=== PATIENT | female | born 1950 | race Caucasian/White ===

== ENCOUNTER 2018-08-07 11:00 | Observation (INO) | payer MEDICARE ==
--- NOTE | 2018-07-29 13:59 | HP ---
HISTORY AND PHYSICAL: DATE OF ADMISSION/SURGERY: 08/07/18 DATE OF OFFICE VISIT: 07/25/18 SURGEON: Elaina Ghosh MD* (dictated by CHIKIS Barajas). PROCEDURE: Left total knee arthroplasty. CHIEF COMPLAINT: Left knee pain. HISTORY OF PRESENT ILLNESS: Ms. Alejandro is a 67-year-old female with continued complaints of left knee pain. She has failed conservative treatment and elected to proceed with a left total knee arthroplasty. PAST MEDICAL HISTORY: Hypertension and high cholesterol. PAST SURGICAL HISTORY: Tonsillectomy, adenoidectomy, 2 urethral stricture surgeries, 8 foot surgeries, x2, hysterectomy, septoplasty, and ORIF of the right ankle. CURRENT MEDICATIONS: 1. Metoprolol 25 mg a day. 2. Aspirin 81 mg a day. ALLERGIES: To SULFA, TETRACYCLINE, and ADHESIVE TAPE. FAMILY HISTORY: Coronary artery disease and cancer. SOCIAL HISTORY: She is a 67-year-old female. She lives alone. She does not smoke or use drugs. REVIEW OF SYSTEMS: A complete 14-point review of systems was reviewed with the patient. It was all negative or noncontributory. She denies history of DVT, PE , hepatitis, HIV, or anesthesia problems. PHYSICAL EXAMINATION GENERAL: She is well developed, well nourished, in no acute distress. VITAL SIGNS: She stands 5 feet 3 inches tall, weighs 202 pounds. Blood pressure is 118/64, heart rate is 64. HEENT: Normocephalic, atraumatic. NECK: Supple. No palpable lymph nodes. PULMONARY: The lungs are clear to auscultation bilaterally. CARDIO: Regular rate and rhythm. Strong S1, S2. ABDOMEN: Soft, nontender, nondistended. NEUROLOGICAL: She is alert and oriented x3. MUSCULOSKELETAL: Left lower extremity: The skin is intact. There are no open wounds or abrasions. There is a moderate effusion of the left knee. Range of motion is 10 to 120 degrees of flexion with severe patellofemoral crepitus. 2+ dorsalis pedis pulse. She is able to dorsiflex and plantarflex and has intact sensation. ASSESSMENT AND PLAN: Ms. Alejandro is a 67-year-old female with end-stage osteoarthritis of the left knee. She has failed conservative treatment and elected to proceed with a left total knee arthroplasty. The surgery is scheduled for 08/07/[address] Ghosh discussed the risks and benefits of the surgery at today's visit and all of her questions were answered. She will follow up with Dr. Ghosh 2 weeks after the surgery. CHIKIS BARAJAS [id number]/[facility] #: [id number] ESTELLE
[~2018-08-07 11:00] MED LIST: KETAMINE HCL* 50 MG/ML 10 ML VIAL ONE; Propofol* 500 MG/50 ML BTL ONE; ROPIVACAINE 5 MG/ML 30 ML BTL (0.5%) ONE; Tranexamic Acid 1,000 MG in NS 0.9% 50 ML* (outpatient use) IV SCH
[2018-08-07] MEDS ORDERED: fentaNYL* 50 MCG/ML 2 ML VIAL (100 MCG VIAL) ONE (12:17)
[2018-08-07] MEDS ORDERED: Midazolam* 1 MG/ML 2 ML VIAL (2 MG) ONE (12:17)
[2018-08-07] MEDS ORDERED: ceFAZolin 2 GM PREMIX in ORs 2 GM/50 ML BAG IVPB ONE (12:18)
[2018-08-07] MEDS ORDERED: Buffered Lidocaine 1% SYRIN* 1 ML/SYRINGE INTRADERM ONE (12:18)
[2018-08-07] MEDS ORDERED: Propofol* 500 MG/50 ML BTL ONE (12:18)
[2018-08-07] MEDS ORDERED: KETAMINE HCL* 50 MG/ML 10 ML VIAL ONE (12:19)
[2018-08-07 13:04] LABS: INR 1.27 (0.82-1.09)
[2018-08-07] MEDS ORDERED: Lidocaine 2% PF * 5 ML VIAL ONE (13:48)
[2018-08-07] MEDS ORDERED: Bupivacaine 0.5% SDV PF* 30ML VIAL ONE (13:48)
[2018-08-07] MEDS ORDERED: Lidocaine 1%* 5 ML VIAL ONE (14:46)
[2018-08-07] MEDS ORDERED: Dexamethasone IV* 4 MG/ML 1 ML (4 MG) ONE (15:40)
[2018-08-07] MEDS ORDERED: ROPIVACAINE 5 MG/ML 30 ML BTL (0.5%) ONE (15:48)
[2018-08-07] MEDS ORDERED: Labetalol IV* 5 MG/ML 20 ML VIAL ONE (16:14)
[2018-08-07] MEDS ORDERED: Naloxone* 0.4 MG/ML 1 ML VIAL IV PRN (16:17)
[2018-08-07] MEDS ORDERED: Ketorolac INJ* 30 MG/ML 1 ML VIAL IV PRN (16:17)
[2018-08-07] MEDS ORDERED: HYDROmorphone INJ1* 1 MG/ML SYRINGE IV PRN (16:17)
[2018-08-07] MEDS ORDERED: Acetaminophen TAB* 325 MG PO PRN (16:17)
[2018-08-07] MEDS ORDERED: Ondansetron INJ* 2 MG/ML VIAL IV PRN (16:17)
[2018-08-07] MEDS ORDERED: Propofol* 10 MG/ML 20 ML BTL ONE ×2 (17:11→17:14)
[2018-08-07] MEDS ORDERED: CLONIDINE EPIDURAL ONE (17:15)
[2018-08-07] MEDS ORDERED: Polyethylene Glycol 3350* 17 GM PACKET PO PRN (17:34)
[2018-08-07] MEDS ORDERED: Cyclobenzaprine TAB* 10 MG PO PRN (17:34)
[2018-08-07] MEDS ORDERED: oxyCODONE/Acetamin 5/325 MG* TAB PO PRN (17:34)
[2018-08-07] MEDS ORDERED: Magnesium Hydroxide LIQ* 30 ML UDC PO PRN (17:34)
[2018-08-07] MEDS ORDERED: Ondansetron TAB* 4 MG PO PRN (17:34)
[2018-08-07] MEDS ORDERED: Morphine INJ* 2 MG/ML 1 ML SYRINGE (TWO MG - NEW SYRINGE VERSION) IV PRN (17:34)
[2018-08-07] MEDS ORDERED: oxyCODONE TAB* 5 MG TAB PO PRN (17:34)
[2018-08-07] MEDS ORDERED: traMADol TAB* 50 MG PO PRN (17:34)
[2018-08-07] MEDS ORDERED: diPHENhydraMINE IV* 50 MG/ML 1 ml VIAL (BENADRYL) IV PRN (17:34)
[2018-08-07] MEDS ORDERED: Bisacodyl SUPP* 10 MG SUPP PR PRN (17:34)
[2018-08-07] MEDS ORDERED: Acetaminophen TAB* 325 MG PO SCH (18:00)
[2018-08-07] MEDS ORDERED: Ketorolac INJ* 30 MG/ML 1 ML VIAL ONE (18:25)
[2018-08-07] MEDS ORDERED: Acetaminophen TAB* 325 MG ONE (18:56)
--- NOTE | 2018-08-07 19:18 | OP ---
Operative Report - Blank - Operative Report Date of Operation: 08/07/18 Note: DARIELA GR 1950 Date of Surgery: 08/07/18 Elaina Ghosh MD Plumber: Alise DIOP did help throughout the procedure with preparation of the knee, wound retraction, manipulation of the knee, and wound closure. Anesthesiologist: Dominique Umanzor MD Anesthesia Type: Spinal Preoperative Diagnosis: Left severe degenerative osteoarthritis of the knee Postoperative Diagnosis: As above Procedure Performed: Left Total Knee Arthroplasty Tourniquet time: 45 minutes Complications: None Specimen: Bone and cartilage from the left knee joint sent to pathology. Hardware Used: Cemented Degroot and Nephew total knee hardware was used - For the femur a size 5 left narrow legion posterior stabilized femoral component, for the tibia a size 3 left erica II tibial baseplate, for the insert a size 11 3 -4 posterior stabilized articular polyethylene insert, and for the patella a size 29 3-peg all poly patella. Brief History/Indication: DARIELA GR was known in clinic and had a history of severe left knee pain and swelling. She failed conservative treatment with anti-inflammatories, pain pills, intra-articular injections and physical therapy. She elected to undergo left total knee arthroplasty due to continued pain and decreased quality of life. Radiographs showed severe end stage osteoarthritis of the knee with bone on bone contact. Informed consent was obtained from the patient. She understood the risks of surgery included but were not limited to: bleeding, infection, damage to nearby structures, intraoperative fracture, nerve palsy, failure of the hardware, early loosening, knee stiffness or loss of motion, anesthesia complications, stroke, heart attack , blood clot and . She wished to proceed. Intra-Operative Findings: Intraoperatively the patient was noted to have severe loss of cartilage in all 3 compartments of the knee. Description of the Procedure: DARIELA GR was identified in the preanesthesia unit. Her left knee was marked as the correct operative side. Informed consent was signed and placed in the chart. The patient was taken to the operating room and placed under anesthesia without complication. A jack catheter was placed. A tourniquet was placed on the left thigh. The left lower extremity was prepped and draped in the usual sterile fashion. Preoperative time-out was made to correctly identify the patient, side and site. Appropriate intraoperative antibiotics were given within one hour of incision. Tourniquet was inflated. A midline incision was made and carried sharply down to the extensor mechanism. A new 10 blade was used to make a standard medial parapatellar arthrotomy. The patella was subluxed laterally. Electrocautery was used to dissect soft tissue off the superomedial tibia to the midsagittal plane. The knee was flexed up. The anterior horn of the lateral meniscus and the ACL were sharply incised. A drill was used to enter the distal femur. The intramedullary distal femoral cutting guide was pinned on the distal femur. The oscillating saw was used to make the distal femoral cut. The external rotation guide was pinned on the distal femur and the distal femur was sized to a size 5. The size 5 multi-cutting jig was pinned on the distal femur. The oscillating saw was used to make the appropriate 4 chamfer cuts. Next the PCL was completely released. The extramedullary tibial cutting guide was pinned on the proximal tibia and the oscillating saw was used to make the proximal tibial cut perpendicular to the mechanical axis of the tibia. The bone was carefully removed. The knee was brought out into full extension. The spacer block was placed and had excellent fit with the knee in full extension. The medial and lateral ligaments were well balanced. The flexion and extension gaps were well balanced. The knee was flexed up. Lamina absorption plant operator helper was placed both medially and laterally. Any remaining meniscus was removed with electrocautery. Curved osteotome was used to remove any posterior osteophytes. The tibial tray and drop prisca were placed and confirmed a satisfactory tibial cut. The size 5 left narrow femoral trial was impacted onto the distal femur. This trial had excellent fit and stability. The box for the posterior stabilized implant was prepared using a box cut osteotome and a reamer. Next a tibial tray trial and 9 mm insert trial was placed. The knee was taken through a range of motion and had full extension to 130 degrees of flexion. Patellofemoral tracking was satisfactory. The patella was inverted and sized to a size 29. Three peg holes were drilled through the size 29 drill guide. The trial patella was placed and the knee was taken through a range of motion. There was satisfactory patellofemoral tracking. All trials were removed. The tibia was subluxed anteriorly and sized to a size 3. The proximal tibial was prepared with a size 3 keel punch. All bony cut surfaces were irrigated with sterile saline and dried. Final implants were cemented into place starting with the tibia, followed by the femur, and last the patella. A 9 mm insert trial was placed and the knee was brought into full extension. Tourniquet was turned down and the knee was copiously irrigated with sterile saline. Electrocautery was used to obtain meticulous hemostasis. Once the cement had fully cured, the insert trial was removed. Any excess cement was removed from around the hardware and capsule. Final insert chosen was a 11 mm posterior stabilized Erica II articular insert size 3-4. Stability of the insert was checked and noted to be stable. The extensor mechanism was closed using number 1 vicryls. The rest of the incision was closed in a layered fashion using 0 and 2-0 vicryls. The skin was closed using 3-0 nylon suture. Sterile xeroform, 4x4s and webril were used to cover the incision. Johnny wrap and cold pack were used to cover the dressings. The patients anesthesia was reversed without difficulty. She was taken to the PACU in stable condition. Intended weight-bearing will be as tolerated.
[2018-08-07] MEDS: Lactated Ringers 1000 ML Bag* 1,000 ML IV SCH (20:15)
--- NOTE | 2018-08-07 20:31 | CONS ---
CC: Dr. Edmund Wilde; Dr. Leon Mcknight; Dr. Elaina Ghosh * CONSULTATION REPORT: DATE OF CONSULT: 08/07/18 PRIMARY CARE PROVIDER: Dr. Edmund Wilde. MY ATTENDING WHILE IN THE HOSPITAL: Dr. Leon Mcknight. CONSULTING PROVIDER: Dr. Elaina Ghosh. REASON FOR CONSULT: Co-management of comorbid medical condition. HISTORY OF PRESENT ILLNESS: Ms. Alejandro is a 67-year-old female with past medical history significant only for hypertension, high cholesterol, and what she describes as lower extremity blood clots in association with her 2 pregnancies, but shows nowhere else in her medical history, who is currently postoperative for an elective left knee arthroplasty today. The patient has minor pain, but is otherwise feeling well. The patient denies fevers, chills, chest pain, or shortness of breath. The patient had spinal anesthesia and 200 mL of estimated blood loss. The patient denies dizziness, change in vision, headache. Preoperatively, the patient denies chest pain, shortness of breath, decreased exercise tolerance, fevers, chills, changes in medications, or sick contacts. The patient recently had not taken her aspirin in 5 days and has not taken her metoprolol for 1-1/2 days. The patient is, otherwise, feeling well. PAST MEDICAL HISTORY: Hypertension, high cholesterol, possible history of blood clots. PAST SURGICAL HISTORY: Tonsillectomy, adenoidectomy, 2 urethral stricture surgeries, 8 foot surgeries, x2, hysterectomy, septoplasty, ORIF of the right ankle, "blood clot surgery" of the lower extremities. MEDICATIONS: 1. Metoprolol tartrate 25 mg p.o. b.i.d. 2. Aspirin 81 mg p.o. daily. ALLERGIES: SULFA, TETRACYCLINE, and ADHESIVE TAPE. FAMILY HISTORY: The patient's mother of complications of COPD. The patient's father of stomach cancer and also had heart disease and an aneurysm. The patient has a brother who of heart disease. The patient has another brother who required a pacemaker. SOCIAL HISTORY: The patient never smoked. Does not use illicit drugs. The patient drinks occasional alcohol. 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 The patient lives with her older brother, is . The patient's surrogate decision maker will be her son, Ezekiel Alejandro. REVIEW OF SYSTEMS: A 14-point review of systems was reviewed and is negative, except as stated above in the HPI. PHYSICAL EXAM: General: The patient is a 67-year-old female who appears stated age and is sitting comfortably, in no acute distress. Vital Signs: At the time of evaluation, temperature 96.3, pulse rate is 75, respiratory rate 17 , oxygen saturation 96% on room air, blood pressure 121/70. HEENT: Head: Normocephalic, atraumatic. Sclerae anicteric. No conjunctival injection. Nasal mucosa moist. Oral mucosa moist. No pharyngeal erythema, discharge, or exudate. Neck: Supple, nontender. No lymphadenopathy. No carotid bruit auscultated. No JVD. Cardiac: Regular rate and rhythm. No clicks, murmurs, gallops, or rubs. Pulses 2+ in her bilateral dorsalis pedis, posterior tibialis and radial areas. Respiratory: Clear to auscultation bilaterally. No wheezes, rales, or rhonchi. Good air exchange bilaterally. Abdomen: Abdominal pain. Bowel sounds present and normoactive in all 4 quadrants. No hepatosplenomegaly. No abdominal bruits auscultated. No hepatojugular reflux. Genitourinary: No suprapubic or CVA tenderness. Skin: Clean, dry, and intact. No rash. Left knee incision covered in bulky dressing. Neuro: Cranial nerves II through XII intact. No focal deficits. Alert and oriented x3. Psychiatric: Pleasant and cooperative. DIAGNOSTIC STUDIES/LAB DATA: Laboratory data preoperatively, white blood cell count 6.0, hemoglobin 14.7, platelet count 195. INR 1.27, aPTT 32.5. Sodium 140, potassium 4.6, chloride 107, carbon dioxide 27, anion gap 6, BUN 20, creatinine 0.63. Bilirubin 0.4, AST 22, ALT 19, alkaline phosphatase 67. Protein 7.3, albumin 4.4, globulin 2.9. Urine was positive for nitrite, trace leukocyte esterase, and 3+ bacteria. ASSESSMENT AND PLAN: Impression: Ms. Alejandro is a 67-year-old female with past medical history significant for the above who is currently postoperative for a left total knee replacement and is doing well. 1. Postoperative state. Management per orthopedics. The patient should have her H and Hs trended. The patient should have PT/OT, bowel regimen, pain control. The patient should have her Bolton removed at the earliest possible opportunity. The patient should have fluids until she is able to tolerate foods. We will start adequate intake by mouth. 2. Hypertension. The patient required labetalol in the hospital. This is likely due to rebound hypertension from the patient not taking her metoprolol perioperatively. This will be continued perioperatively starting tonight. The patient is currently normotensive. 3. Hyperlipidemia. The patient is not on any medications for this. Continue aspirin for primary prevention of myocardial infarction starting day after tomorrow. 4. FEN. The patient will have a regular unrestricted diet and fluids as above. 5. DVT prophylaxis. Eliquis per orthopedics. 6. Disposition. Per orthopedics. TIME SPENT: Approximately 45 minutes were spent on this consultation, 30 of which were spent [id number] with the patient obtaining history and physical and discussing treatment plan. This plan has been discussed with my attending, Dr. Leon Mcknight; he is in agreement. Thank you very for this consult. We will continue to follow along with you. CHIKIS LARSON [id number]/[facility] #: [id number] ESTELLE
[2018-08-07] MEDS: Docusate CAP* 100 MG PO SCH (21:02)
[2018-08-07] MEDS: Metoprolol Tartrate TAB* 25 MG PO SCH (21:02)
[2018-08-07] MEDS: Magnesium Hydroxide LIQ* 30 ML UDC PO SCH (21:02)
[2018-08-07] MEDS: ceFAZolin 1 GM ADVAN(*) 1 GM in NS 0.9% 50 ML* 50 ML IVPB SCH (23:13)
[2018-08-08] MEDS: oxyCODONE/Acetamin 5/325 MG* TAB PO PRN ×2 (03:38→15:30)
[2018-08-08] MEDS: Acetaminophen TAB* 325 MG PO SCH ×2 (03:40→12:36)
[2018-08-08] MEDS: Lactated Ringers 1000 ML Bag* 1,000 ML IV SCH (06:26)
[2018-08-08 07:35] LABS: Hematocrit 38 % (35-47); Hemoglobin 12.8 g/dL (12.0-16.0); Mean Platelet Volume 7.4 fL (7.4-10.4); Platelet Count 245 10^3/uL (150-450)
[2018-08-08 07:59] LABS: BUN/Creatinine Ratio 25.4 (8-20); Calcium 8.8 mg/dL (8.6-10.3); EGFR African American 113.7 (>60); Potassium 4.4 mmol/L (3.5-5.0)
[2018-08-08] MEDS: ceFAZolin 1 GM ADVAN(*) 1 GM in NS 0.9% 50 ML* 50 ML IVPB SCH ×2 (08:15→15:30)
[2018-08-08] MEDS: Metoprolol Tartrate TAB* 25 MG PO SCH (08:15)
[2018-08-08] MEDS: Docusate CAP* 100 MG PO SCH (08:16)
[2018-08-08] MEDS: Magnesium Hydroxide LIQ* 30 ML UDC PO SCH (08:16)
[2018-08-08] MEDS ORDERED: Apixaban* 2.5 MG TAB PO SCH (09:00)
--- NOTE | 2018-08-08 11:10 | DS ---
Orthopedic Discharge Summary - Discharge Summary Date of Admission:08/07/18 Date of Discharge: 08/08/18 Date of Surgery: 08/07/18 Attending Orthopedic Provider: Dr. Ghosh Pre-operative Diagnosis: Degenerative arthritis left knee Operative Procedure: Left total knee arthroplasty Disposition of Patient: home Condition of Patient: Stable History: DARIELA GR is a 67 year old F with years of increasingly severe left knee pain. Patient has failed conservative management and has elected to undergo a left total knee replacement Hospital Course: DARIELA was admitted to [facility] on 08/07/18. Patient underwent a left total without complication followed by a brief recovery in PACU and transfer to the Short Stay Surgical Unit in stable condition. Our hospitalist service, physical therapy and occupational therapy also participated in this patients care. Post-op day 1: patient was alert and in no acute distress. Dressing was clean, dry and intact. Operative extremity dorsiflexion and plantarflexion intact, sensation intact to light touch distally , DP2+. Dressing was changed, incision was clean, dry and intact. Patient was deemed to be medically and orthopedically stable for discharge. Physical therapy goals were met. Home Medications Medication Instructions Recorded Confirmed Type Aspirin EC TAB* [Ecotrin EC Low 81 mg PO BID 02/07/16 08/07/18 History Dose 81 MG*] Lutein 200 mg PO QAM 07/25/18 08/07/18 History Metoprolol Tartrate 25 mg PO BID 07/25/18 08/07/18 History Apixaban* [Eliquis*] 2.5 mg PO BID #60 tab 08/08/18 Rx Docusate CAP* [Colace Cap*] 100 mg PO BID cap 08/08/18 Rx oxyCODONE/Acetamin 5/325 MG* 1 - 2 tab PO Q4H PRN #70 tab MDD 10 08/08/18 Rx [Percocet 5/325 TAB*] WBAT LLE Eliquis BID for 1 month Percocet 5/325 meds Stephon Sharif Follow up 10-[address] Ghosh
[2018-08-08] MEDS: Ondansetron INJ* 2 MG/ML VIAL IV PRN ×2 (11:11→15:59)
[2018-08-08 15:41] VITALS: BP 124/60
[2018-08-09] MEDS ORDERED: Aspirin EC TAB* 81 MG TAB.EC PO SCH (09:00)
== END 2018-08-08 17:00 | disposition home or self-care (01) ==
LOC: INTOOBSV 12:04 → AA 12:04 → SSU 19:46
PROVIDERS: ADMIT Orthopaedic Surgery Adult Reconstructive Orthopaedic Surgery; ATTEND Orthopaedic Surgery Adult Reconstructive Orthopaedic Surgery
DX: M17.12 Unilateral primary osteoarthritis, left knee (principal); M25.562 Pain in left knee; Z79.82 Long term (current) use of aspirin; I10 Essential (primary) hypertension; Z88.2 Allergy status to sulfonamides
CPT/HCPCS: 36415; 80048; 85014; 85018; 85049; 85610; 88305; 88311; 96374; A9270-GY; C1776; G0378; G8978-GP-CJ; G8979-GP-CI; J0690; J1100; J1885; J2250; J2405; J2704; J2795; J3010; J3490

== ENCOUNTER 2018-08-09 09:56 | Emergency (ER) | payer MEDICARE ==
[2018-08-09] MEDS ORDERED: Apixaban* 5 MG TAB PO ONE (10:57)
[2018-08-09] MEDS ORDERED: oxyCODONE SR TAB(*) 10 MG TAB.SR PO ONE (10:57)
--- NOTE | 2018-08-09 10:58 | ED ---
Lower Extremity - HPI Summary HPI Summary: This patient is a 67 year old F arriving to ED via EMS with a chief complaint of left knee pain since two days ago following her left knee replacement on 08/07 and discharge on on 08/08/18. The patient rates the pain 7/10 in severity on arrival but now a 5/10 in the room. Symptoms aggravated by nothing. Symptoms alleviated by warm towel on the left knee. Patient reports that she was doing well after the surgery (2/10 in intensity) but unable to afford any medicine so she was taking her neighbors pills. Patient denies taking oxycodone and Eliquis. She states her neighbor thinks she shouldnt be home alone, but she says she feels safe at home. Patient ate some rice today. PMHx of blood clots in legs, cardiomegaly, HTN, arthritis, tendonitis. PSHx of total hysterectomy, C -section, varicose vein stripping bilaterally. Patient does not drink alcohol, use tobacco, or use drugs. FHx of cancer, HI, cardiac disease. 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 but now a 5/10 in the room Pain Scale Used: 0-10 Numeric Timing: Constant Associated Signs And Symptoms: Positive: Negative Alleviating Factor(s): Other - Warm towel - Allergies/Home Medications Allergies/Adverse Reactions: Allergies Allergy/AdvReac Type Severity Reaction Status Date / Time adhesive tape Allergy Rash Verified 08/09/18 13:54 Sulfa (Sulfonamide Allergy Rash Verified 08/09/18 13:54 Antibiotics) tetracycline Allergy Rash Verified 08/09/18 13:54 PMH/Surg Hx/FS Hx/Imm Hx Cardiovascular History: Reports: Hx Cardiomegaly, Hx Hypertension - on meds, Hx Peripheral Vascular Disease - poor circulation to legs after of babys Denies: Other Cardiovascular Problems/Disorders Respiratory History: Denies: Other Respiratory Problems/Disorders GI History: Denies: Other GI Disorders Musculoskeletal History: Reports: Hx Arthritis - left knee, right toe, Hx Tendonitis - hands Denies: Other Musculoskeletal History Sensory History: Reports: Hx Contacts or Glasses Denies: Hx Hearing Aid Opthamlomology History: Reports: Hx Contacts or Glasses Neurological History: Denies: Other Neuro Impairments/Disorders - head tremors, hands, worse with stress - Cancer History Hx Chemotherapy: No Hx Radiation Therapy: No - Surgical History Surgery Procedure, Year, and Place: total hysterrectomy; 1994, [facility]. 2 c- sections;1985, 1987. tonsillectomy;. 1963 bilat feet x 10;. varicose vein stripping, [place], several. bunions;left foot, 2005. right ankle,. nose fx, 1999 , [facility]. uretheral stricures, Hx Anesthesia Reactions: Yes - woke up during surgery Infectious Disease History: No Infectious Disease History: Denies: Hx Clostridium Difficile, Hx Hepatitis, Hx Human Immunodeficiency Virus (HIV), Hx of Known/Suspected MRSA, Hx Shingles, Hx Tuberculosis, Hx Known/ Suspected VRE, Hx Known/Suspected VRSA, History Other Infectious Disease, Traveled Outside the [place] in Last 30 Days - Family History Known Family History: Positive: Cardiac Disease, Other - HI, cance - Social History Alcohol Use: None Substance Use Type: Reports: None Smoking Status (MU): Never Smoked Tobacco Review of Systems Negative: Fever Musculoskeletal: Other - Left knee pain All Other Systems Reviewed And Are Negative: Yes Physical Exam - Summary Physical Exam Summary: GENERAL: Patient is a well-developed and nourished F who is lying comfortable in the stretcher. Patient is not in any acute respiratory distress. HEAD AND FACE: Normocephalic EYES: PERRLA, EOMI x 2. EARS: Hearing grossly intact. MOUTH: Oropharynx within normal limits. NECK: Supple, trachea is midline, no adenopathy, no JVD, no carotid bruit. CHEST: Symmetric, no tenderness at palpation LUNGS: Clear to auscultation bilaterally. No wheezing or crackles. CVS: Regular rate and rhythm, S1 and S2 present, no murmurs or gallops appreciated. ABDOMEN: Soft, non-tender. Bowel sounds are normal. No abnormal abdominal pulsations. EXTREMITIES: no left calf tenderness or swelling, left knee in FELIX wrap. NEURO: Alert and oriented x 3. No acute neurological deficits. Speech is normal and follows commands. SKIN: Dry and warm Triage Information Reviewed: Yes Vital Signs On Initial Exam: Initial Vitals Temp Pulse Resp BP Pulse Ox 99.8 F 98 15 157/81 94 08/09/18 10:01 08/09/18 10:01 08/09/18 10:01 08/09/18 10:01 08/09/18 10:01 Vital Signs Reviewed: Yes Diagnostics - Vital Signs Vital Signs Temp Pulse Resp BP Pulse Ox 08/09/18 10:01 99.8 F 98 15 157/81 94 - Laboratory Lab Statement: Any lab studies that have been ordered have been reviewed, and results considered in the medical decision making process. Re-Evaluation - Re-Evaluation First Eval Re-Evaluation Time: 11:57 Comment: Discussed results with patient and plan for discharge. Patient understands and agrees with this plan. Lower Extremity Course/Dx - Course Course Of Treatment: This patient is a 67 year old F arriving to ED via EMS with a chief complaint of left knee pain since two days ago following her left knee replacement on 08/07/18 and discharge on 08/08/18. In the ED course, patient was given Eliquis and oxycodone. Patient care was discussed with Dr. Lopez, hospitalist, who consulted the patient and recommended working with case management to provide the patient means of accessing medication. Case management was able to provide methods of obtaining prescription. Patient will be discharged home with dx of encounter for physical and prescription for Eliquis. I discussed results with patient, and she reports feeling better. She is hemodynamically stable and safe for discharge. Strict return precautions given and she will otherwise follow up with her PCP. - Diagnoses Provider Diagnoses: Encounter for physical examination - Physician Notifications Discussed Care Of Patient With: Artem Lopez Time Discussed With Above Provider: 11:53 Instructed by Provider To: Other - Discussed patient case with Dr. Lopez, hospitalist. The patient is a assisted admission for placement. Discharge - Sign-Out/Discharge Documenting (check all that apply): Patient Departure - Discharge Patient Received Moderate/Deep Sedation with Procedure: No - Discharge Plan Condition: Stable Disposition: HOME Prescriptions: Apixaban [Eliquis] 2.5 mg PO BID 30 Days #60 tab Patient Education Materials: Apixaban (By mouth) Referrals: Edmund Wilde MD [Primary Care Provider] - 3 Days Additional Instructions: Follow up with your primary care physician in 1-3 days. RETURN TO THE EMERGENCY DEPARTMENT FOR CHANGING OR WORSENING SYMPTOMS. - Billing Disposition and Condition Condition: STABLE Disposition: Home - Attestation Statements Document Initiated by Elina: Yes Documenting Scribe: Ernie Rebolledo Provider For Whom Elina is Documenting (Include Credential): Yobany Teran MD Scribe Attestation: IErnie, scribed for Yobany Teran MD on 08/09/18 at 2042. Scribe Documentation Reviewed: Yes Provider Attestation: The documentation as recorded by the Ernie phillip accurately reflects the service I personally performed and the decisions made by me, Yobany Teran MD Status of Scribe Document: Viewed
[2018-08-09 14:23] VITALS: BP 130/63
== END 2018-08-09 14:19 | disposition home or self-care (01) ==
LOC: ED 09:56
DX: M25.562 Pain in left knee (principal); Z96.652 Presence of left artificial knee joint; Z88.2 Allergy status to sulfonamides; I10 Essential (primary) hypertension
CPT/HCPCS: 99283; A9270-GY

== ENCOUNTER 2018-10-03 10:08 | Inpatient (IN) | payer MEDICARE ==
--- NOTE | 2018-10-03 10:23 | ED ---
Neurological HPI - HPI Summary HPI Summary: A 68 y/o female presents to [facility] with a chief complaint of speech impairment. She says that 30 minutes ago she was dizzy, could not work a microwave and could not say food. She says that she has been having these episodes for years, but they have become more frequent, saying that she had a similar episode one week ago. She also notes a bruise to each of her bilateral lower extremities. She says that both of her brothers of [place]. Blanco Cooper was called from the waiting room at 10:12. Dr. Teran was at bedside to evaluate the patient at 10:14. Dr. Almendarez, neurologist, was at bedside to evaluate the patient at 10:17. Upon evaluation, when shown a cactus, she says that she knows that it is [place], but couldn't find the word for it. The patient was taken to get a brain CT at 10:20. She says that she came in to the ED because she does not want to be alone. Upon return from CT she says that she is feeling better but is not back to her baseline and is still having some difficulty finding words. She denies a Hx of CVA, DM or HLD but reports a Hx of cardiomegaly and HTN. The patient currently takes 600mg Ibuprofen PO for every 8-12 hours with food as needed for her knee pain, 81mg Aspirin Ec PO daily and 25mg Metoprolol Tartrate PO BID. 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 Negative: Fever - Additional Pertinent History Primary Care Physician: [id number] - Allergy/Home Medications Allergies/Adverse Reactions: Allergies Allergy/AdvReac Type Severity Reaction Status Date / Time adhesive tape Allergy Rash Verified 10/03/18 10:40 Sulfa (Sulfonamide Allergy Rash Verified 10/03/18 10:40 Antibiotics) tetracycline Allergy Rash Verified 10/03/18 10:40 Home Medications: Home Medications Ibuprofen TAB* [Motrin TAB* 600 MG] 600 mg PO Q6H PRN 10/03/18 [History Confirmed 10/03/18] PMH/Surg Hx/FS Hx/Imm Hx Cardiovascular History: Reports: Hx Cardiomegaly, Hx Hypertension - on meds, Hx Peripheral Vascular Disease - poor circulation to legs after of babys Denies: Other Cardiovascular Problems/Disorders Respiratory History: Denies: Other Respiratory Problems/Disorders GI History: Denies: Other GI Disorders Musculoskeletal History: Reports: Hx Arthritis - left knee, right toe, Hx Tendonitis - hands Denies: Other Musculoskeletal History Sensory History: Reports: Hx Contacts or Glasses Denies: Hx Hearing Aid Opthamlomology History: Reports: Hx Contacts or Glasses Neurological History: Denies: Other Neuro Impairments/Disorders - head tremors, hands, worse with stress - Cancer History Hx Chemotherapy: No Hx Radiation Therapy: No - Surgical History Surgery Procedure, Year, and Place: total hysterrectomy; 1994, [facility] [place]. 2 c- sections;1985, 1987. tonsillectomy;. 1963 bilat feet x 10;. varicose vein stripping, [place], several. bunions;left foot, 2004. right ankle,. nose fx, 1999 , [facility]. uretheral stricures, Hx Anesthesia Reactions: Yes - woke up during surgery Infectious Disease History: No Infectious Disease History: Denies: Hx Clostridium Difficile, Hx Hepatitis, Hx Human Immunodeficiency Virus (HIV), Hx of Known/Suspected MRSA, Hx Shingles, Hx Tuberculosis, Hx Known/ Suspected VRE, Hx Known/Suspected VRSA, History Other Infectious Disease, Traveled Outside the [place] in Last 30 Days - Family History Known Family History: Positive: Cardiac Disease, Other - both brothers of [place], cancer - Social History Alcohol Use: None Substance Use Type: Reports: None Smoking Status (MU): Never Smoked Tobacco Review of Systems Negative: Fever Positive: Bruising - on bilateral lower extremities Neurological: Other - positive: dizziness, speech impairment- word finding difficulty All Other Systems Reviewed And Are Negative: Yes Physical Exam - Summary Physical Exam Summary: GENERAL: Patient is a well-developed and nourished F who is lying comfortable in the stretcher. Patient is not in any acute respiratory distress. HEAD AND FACE: Normocephalic EYES: PERRLA, EOMI x 2. EARS: Hearing grossly intact. MOUTH: Oropharynx within normal limits. NECK: Supple, trachea is midline, no adenopathy, no JVD, no carotid bruit. CHEST: Symmetric, no tenderness at palpation LUNGS: Clear to auscultation bilaterally. No wheezing or crackles. CVS: Regular rate and rhythm, S1 and S2 present, no murmurs or gallops appreciated. ABDOMEN: Soft, non-tender. Bowel sounds are normal. No abnormal abdominal pulsations. EXTREMITIES: Full ROM in all major joints, no edema, no cyanosis or clubbing. NEURO: Alert and oriented x 3. No acute neurological deficits. Speech is normal and follows commands. SKIN: Dry and warm Triage Information Reviewed: Yes Vital Signs On Initial Exam: Initial Vitals Temp Pulse Resp BP Pulse Ox 98.1 F 97 20 132/97 99 10/03/18 10:10 10/03/18 10:10 10/03/18 10:10 10/03/18 10:10 10/03/18 10:10 Vital Signs Reviewed: Yes - [place] Coma Scale Best Eye Response: 4 - Spontaneous Best Motor Response: 6 - Obeys Commands Best Verbal Response: 5 - Oriented Coma Scale Total: 15 Diagnostics - Vital Signs Vital Signs Temp Pulse Resp BP Pulse Ox 10/03/18 10:10 98.1 F 97 20 132/97 99 - Laboratory Result Diagrams: 10/03/18 10:22 10/03/18 10:22 Lab Statement: Any lab studies that have been ordered have been reviewed, and results considered in the medical decision making process. - CT Brain CT Interpretation Completed By: Radiologist Summary of CT Findings: 1. No acute intracranial abnormality. Please note brain MRI is more sensitive for acute. infarct. 2. Moderate chronic small vessel disease is likely. ED physician has reviewed this imaging report. Head CTA CT Interpretation Completed By: Radiologist Summary of CT Findings: Minimal atherosclerosis at the origin of the left internal carotid artery. No. significant plaque is noted. No evidence of carotid artery dissection is noted. Intracranial circulation demonstrates no evidence of aneurysmal dilatation or branch. occlusion. ED physician has reviewed this imaging report. 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 Given the. pattern of chronic microhemorrhage and superficial siderosis, and alternative. consideration is inflammatory cerebral angiopathy. Further evaluation by contrast enhanced. brain MRIs recommended. ED physician has reviewed this imaging report. - EKG 11:00 Cardiac Rate: NL - 86 bpm EKG Rhythm: Sinus Rhythm Summary of EKG Findings: EKG at 11:00 showed NSR at 86 bpm, incomplete RBBB, LAFB. NIH Scale - NIH Scale Level of Consciousness: Alert/Keenly Responsive Ask Patient the Month and His/Her Age: Both Correct Ask Pt to Open/Close Eyes and Team Coordinator/Release Non-Paretic Hand: Both Correctly Best Gaze (Only Horizontal Eye Movement): Normal Visual Field Testing: No Visual Loss Facial Paresis-Pt to Smile & Close Eyes or Grimace Symmetry: Normal/Symmetrical Motor Function - Right Arm: No Drift-Holds 10 Seconds Motor Function - Left Arm: No Drift-Holds 10 Seconds Motor Function - Right Leg: No Drift-Holds 10 Seconds Motor Function - Left Leg: No Drift-Holds 10 Seconds Limb Ataxia-Must be out of Proportion to Weakness Present: Absent Sensory (Use Pinprick to Test Arms/Legs/Trunk/Face): Normal Best Language (Describe Picture, Name Items): Some Loss Dysarthria (Read Several Words): Slurs Some Words Extinction and Inattention: No Abnormality Total Score: 2 Re-Evaluation - Re-Evaluation First Eval Re-Evaluation Time: 13:05 Change: Worse Comment: Now she is having right sided facial droop and pronator drift on the right side. Course/Dx - Course Course Of Treatment: A 68 y/o female presents to [facility] with a chief complaint of speech impairment. She says that 30 minutes ago she was dizzy, could not work a microwave and could not say food. She says that she has been having these episodes for years, but they have become more frequent, saying that she had a similar episode one week ago. The physical exam revealed an NIH of 2. Dr. Almendarez wanted TPA because the patient is still symptomatic and still having word finding difficulty. We clarified that the patient is not on Eliquis, as she was just on Eliquis because of her surgery. EKG at 11:00 showed NSR at 86 bpm, incomplete RBBB, LAFB. Brain CT impression: 1. No acute intracranial abnormality. Please note brain MRI is more sensitive for acute. infarct. 2. Moderate chronic small vessel disease is likely. In the ED course the patient was given Lipitor PO, Activase IV and Iohexol IV. Blood work and chemistries obtained and are WNL. Case discussed with sequins spooler, Dr. Delaney, who accepted the patient for admission. I discussed results with patient. The patient agrees with this plan. Upon re-eval at 13:05 the patient's symptoms have worsened. Now she is having right sided facial droop and pronator drift on the right side. Head CTA impression: Minimal atherosclerosis at the origin of the left internal carotid artery. No. significant plaque is noted. No evidence of carotid artery dissection is noted. Intracranial circulation demonstrates no evidence of aneurysmal dilatation or branch. occlusion. The patient will get an MRI stat. 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 Given the. pattern of chronic microhemorrhage and superficial siderosis, and alternative. consideration is inflammatory cerebral angiopathy. Further evaluation by contrast enhanced. brain MRIs recommended. The patient has already been accepted by Dr. Delaney. - Diagnoses Provider Diagnoses: Stroke - Physician Notifications Discussed Care Of Patient With: Anton Almendarez Time Discussed With Above Provider: 10:30 Instructed by Provider To: Other - After seeing the patient in the ED, Dr. Almendarez wanted TPA because the patient is still symptomatic and still having word finding difficulty. We clarified that the patient is not on Eliquis, as she was just on Eliquis because of her surgery. - Critical Care Time Critical Care Time: 30-74 min Discharge - Sign-Out/Discharge Documenting (check all that apply): Patient Departure - admit Patient Received Moderate/Deep Sedation with Procedure: No - Discharge Plan Condition: Fair Disposition: ADMITTED TO [facility] - Billing Disposition and Condition Condition: FAIR Disposition: Admitted to [facility] - Attestation Statements Document Initiated by Scribe: Yes Documenting Scribe: Gabe Britt Provider For Whom Scribe is Documenting (Include Credential): Yobany Teran MD Scribe Attestation: IGabe, scribed for Yobany Teran MD on 10/03/18 at 2024. Scribe Documentation Reviewed: Yes Provider Attestation: The documentation as recorded by the scribe, Gabe Britt accurately reflects the service I personally performed and the decisions made by me, Lalo Teran MD Status of Scribe Document: Viewed Consult Consult: At 10:[address] Delaney, sequins spooler, who accepted the patient for admission. At 13:[address] Almendarez about the change in the patient's symptoms. At 13:[address] Delaney about the change in the patient's system and updated him on the plan for MRI.
[2018-10-03] MEDS ORDERED: ALTEPLASE IV ONE (10:29)
[2018-10-03] MEDS ORDERED: Alteplase* 100 MG VIAL ONE (10:30)
[2018-10-03] MEDS ORDERED: Alteplase* 100 MG VIAL IV ONE (10:32)
[2018-10-03 10:36] LABS: ABS Eosinophils 0.2 10^3/ul (0-0.6); ABS Monocytes 0.7 10^3/ul (0-0.8); ABS Neutrophils 3.9 10^3/ul (1.5-7.7); Eosinophil % 2.7 %; Hematocrit 45 % (35-47); Lymphocyte % 29.3 %; Mean Corpuscular HGB Conc 33 g/dL (31-36); Mean Corpuscular Hemoglobin 31 pg (27-31); Mean Corpuscular Volume 92 fL (80-97); Mean Platelet Volume 7.6 fL (7.4-10.4); Nucleated Red Blood Cells % 0.2; Platelet Count 273 10^3/uL (150-450); Red Cell Distribution Width 14 % (10-15); White Blood Count 6.8 10^3/uL (3.5-10.8)
[2018-10-03 11:04] LABS: INR 1.21 (0.82-1.09)
[2018-10-03 11:05] LABS: Activated Partial Thrombo Time 35.8 seconds (26.0-38.0)
[2018-10-03 11:32] LABS: Albumin 4.5 g/dL (3.2-5.2); Albumin/Globulin Ratio 1.4 (1-3); BUN/Creatinine Ratio 29.2 (8-20); Calcium 9.8 mg/dL (8.6-10.3); EGFR African American 97.2 (>60); EGFR Non-African American 80.3 (>60); Globulin 3.2 g/dL (2-4); HDL Cholesterol 40.5 mg/dL; Potassium 4.3 mmol/L (3.5-5.0); Total Bilirubin 0.5 mg/dL (0.2-1.0); Total Protein 7.7 g/dL (6.4-8.9)
[2018-10-03] MEDS ORDERED: Iohexol 350* (CONTRAST) 500 ML MDV IV ONE (12:28)
[2018-10-03] MEDS ORDERED: Atorvastatin* 80 MG TAB PO ONE (12:32)
--- NOTE | 2018-10-03 12:33 | HP ---
H&P (Free Text) History and Physical: History and Physical -- Critical Care Limitations in history/physical: none HPI: 68y F w/pmhx of HTN, HLD; presents to ER for complaints of inability to speak some words and dizziness, starting 30min prior to arrival ~945am today. Unable to say words in kitchen, slurry speech+, forgot how to operate microwave. No weakness/numbness/blurry vision noted. Went to neighbor house who brought her to ER. She states 5 days back on Saturday she had similar episode for 45min, slurred speech but also right arm weakness, unable to hold things, no gait disturbance, but improved then. No cp/sob/n/v. States she takes ASA 81mg bid, ASA 325mg every afternoon, doesnt like statin, takes metoprolol daily also. In ER, Stroke code called, CT brain negative for acute process. NIHSS 2. Neuro consult called, decision for tpa administration made, started, being completed now ~12pm. ROS: negative except for pertinent positives mentioned above. PMHx: HTN, HLD PSHx: tonsillectomy, adenoidectomy, uretheral stricture surgeries, foot surgeries, , hysterectomy, septoplasty, ORIF of right ankle; Left TKR Family History: CAD Social History: Alcohol-none, Smoking-none, Drug use-none; lives alone Allergies: Allergies Allergy/AdvReac Type Severity Reaction Status Date / Time adhesive tape Allergy Rash Verified 10/03/18 10:40 Sulfa (Sulfonamide Allergy Rash Verified 10/03/18 10:40 Antibiotics) tetracycline Allergy Rash Verified 10/03/18 10:40 Home Medications: Aspirin EC TAB* [Ecotrin EC Low Dose 81 MG*] 81 mg PO BID 02/07/16 [History Confirmed 10/03/18] Metoprolol Tartrate 25 mg PO BID 07/25/18 [History Confirmed 10/03/18] Ibuprofen TAB* [Motrin TAB* 600 MG] 600 mg PO Q6H PRN 10/03/18 [History Confirmed 10/03/18] Tele: NSR Vitals: Vital Signs Temp 98.1 F 10/03/18 10:10 Pulse 97 10/03/18 10:10 Resp 20 10/03/18 10:10 BP 132/97 10/03/18 10:10 Pulse Ox 99 10/03/18 10:10 Intake & Output 10/02/18 10/03/18 10/03/18 18:59 06:59 18:59 Weight 89.358 kg O2/Vent: RA Infusions: alteplase Current Medications: - Physical Exam: Constitutional: awake, alert, no distress, no diaphoresis Head: normocephalic, atraumatic Eyes: no pallor, no icterus ENT: moist mucous membranes Neck: soft, supple, no jvd, no stridor CVS: normal rate, regular, no murmur Resp: bilateral air entry, no RRW, no acc muscle use Abdomen/GI: soft, nontender, nondistended, BS+ Ext/Msk: warm, pulses+, no edema Skin: intact, warm Neuro: awake, alert, orientedx3, moving all extremities, no gross focal deficit Labs: Laboratory Results - last 24 hr 10/03/18 10/03/18 10/03/18 10:18 10:22 10:22 WBC 6.8 RBC 4.90 H Hgb 15.0 Hct 45 MCV 92 MCH 31 MCHC 33 RDW 14 Plt Count 273 MPV 7.6 Neut % (Auto) 57.8 Lymph % (Auto) 29.3 [place] % (Auto) 9.8 Eos % (Auto) 2.7 Baso % (Auto) 0.4 Absolute Neuts (auto) 3.9 Absolute Lymphs (auto) 2.0 Absolute Monos (auto) 0.7 Absolute Eos (auto) 0.2 Absolute Basos (auto) 0.0 Absolute Nucleated RBC 0.0 Nucleated RBC % 0.2 INR (Anticoag Therapy) 1.21 H APTT 35.8 Sodium Potassium Chloride Carbon Dioxide Anion Gap BUN Creatinine Est GFR ( Amer) Est GFR (Non-Af Amer) BUN/Creatinine Ratio Glucose POC Glucose (mg/dL) 84 Lactic Acid Calcium Total Bilirubin AST ALT Alkaline Phosphatase Troponin I Total Protein Albumin Globulin Albumin/Globulin Ratio Triglycerides Cholesterol LDL Cholesterol HDL Cholesterol 10/03/18 10/03/18 10:22 10:22 WBC RBC Hgb Hct MCV MCH MCHC RDW Plt Count MPV Neut % (Auto) Lymph % (Auto) [place] % (Auto) Eos % (Auto) Baso % (Auto) Absolute Neuts (auto) Absolute Lymphs (auto) Absolute Monos (auto) Absolute Eos (auto) Absolute Basos (auto) Absolute Nucleated RBC Nucleated RBC % INR (Anticoag Therapy) APTT Sodium 138 Potassium 4.3 Chloride 104 Carbon Dioxide 23 Anion Gap 11 BUN 21 Creatinine 0.72 Est GFR ( Amer) 97.2 Est GFR (Non-Af Amer) 80.3 BUN/Creatinine Ratio 29.2 H Glucose 99 POC Glucose (mg/dL) Lactic Acid 1.0 Calcium 9.8 Total Bilirubin 0.50 AST 18 ALT 13 Alkaline Phosphatase 75 Troponin I 0.00 Total Protein 7.7 Albumin 4.5 Globulin 3.2 Albumin/Globulin Ratio 1.4 Triglycerides 206 Cholesterol 205 LDL Cholesterol 123 HDL Cholesterol 40.5 Imaging: EKG 10/03 NSR, 1st deg AVB CT brain 10/03 - no acute process noted Assessment: 68y F w/pmhx of HTN, HLD; presents to ER for complaints of inability to speak some words and dizziness, starting 30min prior to arrival ~ 945am today. Unable to say words in kitchen, slurry speech+, forgot how to operate microwave. No weakness/numbness/blurry vision noted. Went to [email or web address] who brought her to ER. She states 5 days back on Saturday she had similar episode for 45min, slurred speech but also right arm weakness, unable to hold things, no gait disturbance, but improved then. No cp/sob/n/v. States she takes ASA 81mg bid, ASA 325mg every afternoon, doesnt like statin, takes metoprolol daily also. In ER, Stroke code called, CT brain negative for acute process. NIHSS 2. Neuro consult called, decision for tpa administration made, started, being completed now ~12pm. -Suspected Acute CVA; s/p tpa 10/03 -Hypertension -Hyperlipidemia Plan: Neuro- -suspected CVA, with recent TIA events -CT brain 10/03 negative for bleed/stroke -CTA brain ordered -s/p tpa given ~11, completed -admit to ICU; neurochecks as per tpa protocol -fall prec, bleeding prec -swallow eval formal tomorrow; bedside nursing later today -no IV sticks -plan for MRI brain tomorrow -neurology consult -maintain SBP>140, permissive hypertension -hold BB today -hold ASA today -tele monitoring -TTE for eval for thrombus -start lipitor 80mg po qhs -Delirium prec; avoid BDZ CVS- -Permissive hypertension to be maintain -hold BB -hold asa -tele monitoring, TTE ordered -Maintain MAP>65 Resp- -RA, no distress -Wean Fio2 to keep sat>92% ID- afebrile. no infection suspected. GI- -bedside swallow eval; then can start PO diet if passed -formal swallow tomorrow Renal- -strict I/O, replete to keep K>4, Mg>2 -jack as indicated Heme- hg normal -on asa 3x a day at home; will need to change to once a day -s/p tpa today 10/03; bleeding prec Endo- check hga1c, tsh; noted lipid panel, start statin Musculsk- pressure ulcer prophylaxis. Bedrest. Wounds- none Nutrition- NPO, swallow eval DVT prophylaxis: SCD GI prophylaxis: - Central Line: - Arterial Line: - Jack Cathetor: - Disposition: Admit to ICU for post tpa for CVA, neurochecks expected LOS>2 midnights Patient Clinical Status: guarded Code Status: full code Total Critical Care time is 35 minutes, excluding procedures/teaching Dean Delaney MD Packing And Final Assembly Supervisor (Electronically Signed)
--- NOTE | 2018-10-03 13:26 | CONS ---
ADDENDUM NOW INCLUDED ON THIS REPORT CONSULTATION REPORT: DATE OF CONSULT: 10/03/18 PATIENT OF: Dr. Teran as well as Dr. Wilde. HISTORY OF PRESENT ILLNESS: This is a 68-year-old right-handed woman I was asked to consult on for possible stroke, which began acutely 30 minutes prior to arrival at the ER. She could not use a microwave at home, could not say the word food and had difficulty thinking and processing words. She was in the waiting room and danay stewart was called from the waiting room at 10:12. I saw her and did NIH Stroke Scale from 10:17 to 10:30 and she had an NIH Stroke Scale of 1. At that point, she could not name cactus and then when she talked around and said that her brother had some in [place] and when she finally was told it was cactus, she knew it. In informal testing, she had word-finding difficulties and thought problems and she said that her thinking was not good and that she was not back to her baseline and at that point she was approaching an hour since the aphasia began. She has had prior episodes of what sounds like aphasia, but this was a more severe one and lasting longer than the ones she has had. These also occurred more frequent. There was an episode that occurred a week ago and they had been infrequent in the past. She has a history of hypertension and cardiomegaly. She had been on Eliquis following an operation, but is not on any anticoagulation at this time. She has had no numbness, weakness. No headache. PAST MEDICAL HISTORY: She also has a history of peripheral vascular disease. PAST SURGICAL HISTORY: She is status post a hysterectomy in 1994, 2 C-sections , tonsillectomy, bilateral foot surgery, bunionectomy in 2004, nose fracture, and ureteral strictures back in the . MEDICATIONS: Include: 1. Aspirin 81 mg daily. 2. Metoprolol 25 mg b.i.d. ALLERGIES: She is allergic to TETRACYCLINE, SULFA, and ADHESIVE TAPE. REVIEW OF SYSTEMS: Negative in all 14 spheres other than HPI. There have been no visual symptoms. PHYSICAL EXAM: Temperature 98.1, pulse 97, respirations 20, blood pressure 132/ 97. As above, her NIH Stroke Scale was 1 because of mild word-finding difficulty. She was alert and oriented and had no other problems. Cranial nerves II through XII were intact. There was no visual field deficit. Motor exam revealed normal tone, strength, coordination. No pronator drift. Finger- to-nose was intact. Sensation intact to light touch and double simultaneous stimulation. Reflexes were 1 and equal, downgoing toes. Neck: Supple. Chest : Clear. Cardiovascular: Regular rate and rhythm. Abdomen is soft with positive bowel sounds. DIAGNOSTIC STUDIES/LAB DATA: Her CT scan, I reviewed and showed some small vessel chronic ischemic changes. She had an EKG that showed normal sinus rhythm with some possible left atrial enlargement. Blood work included normal CBC. INR of 1.21, PTT 35.8. Normal CMP. LDL is 123 , which will need to be treated. She received tPA without incident. IMPRESSION AND PLAN: I discussed with Irina prior to administration of tPA the risks and benefits. Even though she had a low NIH Stroke Scale, her speech and thinking were both significantly affected and it would have been problematic for her to not improve from that baseline. I have gone back and reexamined her and she has no naming difficulty, her speech is without hesitancy or any other problems, her thinking is quicker, and she feels better and back to normal. She will be admitted to the ICU, and we will get a followup scan 24 hours after administration of tPA. At that point, unless her studies and evaluation reveal any other issues, she will be started on aspirin and Plavix for a month and then to go to a daily Plavix. She will need an echo. She will need an MRI scan. Her LDL will need to be treated for a target of 70. Dr. Abdullahi will be assuming her care from a neurological point of view after 5 tonight. Thank you for sharing her case. ADDENDUM: Irina has, on MRI scan, no evidence of a bleed, but there is a small left basal ganglia lesion, which was deep, which Dr. Abreu, the neuroradiologist, thought was most likely a glioma, but raised issues of an inflammatory cerebral angiopathy. There are some chronic microhemorrhages seen on MRI scan per Dr. Abreu, which was not seen on CT scan. She will continue to be observed in the ICU. [id number] #: [id number] #: [id number] [facility]
[2018-10-03 13:43] LABS: TSH (Thyroid Stimulating Horm) 2.6 mcIU/mL (0.34-5.60)
--- NOTE | 2018-10-03 14:34 | PN ---
PROGRESS NOTE: DATE OF VISIT: 10/03/18 PATIENT OF: Dr. Teran. HISTORY: I was called because there has been a deterioration within the past 40 minutes or so in her status. She is having some right facial weakness, right arm weakness, and worsening speech difficulties. I recommended her being sent for a CT scan. CT declined because she has had contrast as the reason they gave, but she is going over for MRI scan now. She clearly has had a change. She has a moderate aphasia. She can name some objects, but not all, much more hesitant in her speech with slow thought process. She has right facial droop and pronator drift. Strength was only trace weak in that right arm. She had good strength in her leg without drift in the right leg at this point. We will be getting the MRI scan, which will help differentiate whether there is progression of an acute stroke or whether there was a bleeding complication. Of note, she has had the CTA, which showed minimal atherosclerotic disease. Her CBC was normal. Her INR and PTT were normal. Her CMP was as before normal and her LDL was elevated. PLAN: We will be following up on the MRI scan and if she has bled, we will be contacting the neurosurgeon. [id number]/[facility] #: [id number] ESTELLE
[2018-10-03] MEDS ORDERED: Phenylephrine 10 MG/ML VIAL* 50 MG in NS 0.9% 250 ML* 245 ML IV SCH (15:53)
--- NOTE | 2018-10-03 15:59 | PN ---
Progress Note - Progress Note Date of Service: 10/03/18 Note: Patient post tpa developed worsening aphasia, Right sided deficit with UE 2/5 and LE 0/5 strength with Right facial droop noted. This was around the time of CTA; which demonstrated no occlusion. MRI brain w/o contrast - left basal ganglia with minimal edema noted, no clear hemorrhage in that area noted. Currently has aphasia, not answering questions appropriately. Dense Right hemiplegia. Right facial droop. 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 Will repeat CT brain tomorrow 24 hours to eval if any bleeding. Will then re-eval and consider if NS eval is required. Cont neurochecks. Load with keppra 1gm q12h for seizure prophylaxis. we discussed that maybe these stroke like symptoms may be nonconvulsive seizures also? Attempted to call Son Ezekiel on chart in [facility] to update him and obtain more family information, no answer. Called Dr Edmund Wilde (PCP) office, and obtained similar info from their record shortly after I called Son and we discussed findings and current status. he would come to [place] on Saturday. (this note was delayed in being completed and signed) (late entry from yestreday ) Dean Delaney Internal Medicine Nurse Practitioner
--- NOTE | 2018-10-03 16:30 | CONS ---
CONSULTATION REPORT: ADDENDUM: Irina has, on MRI scan, no evidence of a bleed, but there is a small left basal ganglia lesion, which was deep, which Dr. 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 There are some chronic microhemorrhages seen on MRI scan per Dr. Abreu, which was not seen on CT scan. She will continue to be observed in the ICU. [id number]/[facility] #: [id number] [facility]ENTER[facility]
[2018-10-03] MEDS: levETIRAcetam 1000MG IVPREMIX* 1,000 MG/100 ML BAG IVPB SCH (16:40)
[2018-10-03] MEDS ORDERED: Perflutren Lipid Microsphere* 3 ML VIAL ONE (16:42)
--- NOTE | 2018-10-03 19:02 | ECHO ---
*[facility]* [place] [address] Fax #: [phone] Transthoracic Echocardiogram Patient: Irina Alejandro : 1950 Study Date: 10/03/2018 Age: 68 Gender: F HR: 92 bpm Height: 65 in /165.1 cm BSA: 1.97 m^2 Weight: 196.6 lb /89.4 kg BMI: 32.8 kg/m^2 *Referring Physician: * Dean Delaney *Reading Physician: * Sheri Chamberlain MD Indications: CVA. History: Risk factors: Hypertension. Obese. Dyslipidemia. Conclusions Summary: 1. Left ventricle: The cavity size is normal. Wall thickness is mildly increased. Systolic function is normal. The estimated ejection fraction is 60-65%. 2. Left atrium: The atrium is mildly dilated. 3. Mitral valve: There is trace regurgitation. 4. Tricuspid valve: There is trace regurgitation. 5. C/t 03/06/2018, stable. Study data: Transthoracic echocardiogram. Procedure: Transthoracic echocardiography was performed. Image quality was fair. The study was technically limited due to body habitus. Intravenous agitated saline was administered. A bubble study was performed on Images 107 and 108. Intravenous Definity 2 ml was given by Flavio Fernandez RN, RDCS to enhance imaging. Complete 2D, spectral Doppler, and color flow Doppler. Location: Bedside. Patient status: Inpatient. Patient room number: ICU 4. Rhythm: Normal sinus rhythm. Findings Left ventricle: The cavity size is normal. Wall thickness is mildly increased. Systolic function is normal. The estimated ejection fraction is 60-65%. Wall motion is normal; there are no regional wall motion abnormalities. There is no consistent Doppler evidence of clinically significant diastolic dysfunction. Right ventricle: The cavity size is normal. Wall thickness is mildly increased. Systolic function is normal. Left atrium: The atrium is mildly dilated. Right atrium: The atrium is normal in size. Atrial septum: No defect or patent foramen ovale is identified. Bubble study was negative. Images 107 and 108. Mitral valve: The leaflets are mildly thickened. There is no evidence of stenosis. There is trace regurgitation. Aortic valve: Not well visualized. The leaflets are mildly thickened. There is no evidence of stenosis. There is no regurgitation. Tricuspid valve: The valve is structurally normal. There is no evidence of stenosis. There is trace regurgitation. Pulmonic valve: Not well visualized. There is no evidence of stenosis. There is no significant regurgitation. Aorta: Aortic root: The aortic root is not dilated. Ascending aorta: The ascending aorta is not dilated. Aortic arch: The aortic arch is not dilated. Pericardium: There is no significant pericardial effusion. Pulmonary arteries: Not well visualized. Systolic pressure can not be accurately estimated. Systemic veins: Inferior vena cava: The respirophasic diameter changes are blunted (< 50%). Measurements Left ventricle Value Ref Aortic valve Value Ref GOOD, LAX 3.9 cm 3.8 - Blake diam, ED 2.2 cm ---- 5.2 Peak v, S 1.76 m/sec ---- ESD, LAX 2.8 cm 2.2 - VTI, S 31.8 cm ---- 3.5 Mean grad, S 7.0 mm Hg ---- FS, LAX 27 % 27 - 45 Peak grad, S 12.0 mm Hg ---- PW, ED (H) 1.1 cm 0.6 - LVOT/AV, VTI ratio 0.63 ---- 0.9 IVS/PW, ED 1.05 -------- Mitral valve Value Ref E', lat blake, TDI (L) 7.3 cm/sec >=10.0 Peak E 0.76 m/sec -- -- E/e', lat blake, TDI 10 -------- Peak A 1 m/sec ---- E', med blake, TDI 8.1 cm/sec >=7.0 Decel time 268 ms -- -- E/e', med blake, TDI 9 -------- Peak grad, D 2.3 mm Hg ---- E', avg, TDI 7.7 cm/sec -------- Peak E/A ratio 0.8 ---- E/e', avg, TDI 10 <=14 Pulmonic valve Value Ref LVOT Value Ref Peak v, S 0.85 m/sec ---- Peak florence, S 1.1 m/sec -------- Peak grad, S 3.0 mm Hg ---- VTI, S 19.9 cm -------- Mean grad, S 3 mm Hg -------- Aortic root Value Ref Root diam 2.8 cm <4.1 Ventricular septum Value Ref IVS, ED (H) 1.2 cm 0.6 - Ascending aorta Value Ref 0.9 AAo AP diam, S 3.1 cm ---- Right ventricle Value Ref Aortic arch Value Ref GOOD, LAX 2.5 cm -------- Arch diam 2.3 cm ---- GOOD minor ax, A4C 3.0 cm 1.9 - mid 3.5 Decending aorta Value Ref Es peak florence 0.8 m/sec ---- Left atrium Value Ref ML dim, A4C 3.8 cm -------- Inferior vena cava Value Ref SI dim, A4C 4.4 cm -------- Diam 1.4 cm ---- Vol/bsa, ES, 1-p 36 ml/m^2 11 - 40 A4C Vol/bsa, ES, A/L (H) 40 ml/m^2 16 - 34 Right atrium Value Ref ML dim, ES, A4C 3.3 cm 2.6 - 4.4 SI dim, ES, A4C 3.6 cm 3.4 - 5.3 Estimated RAP 8 mm Hg -------- Legend: (L) and (H) isaac values outside specified reference range. Prepared and electronically signed by Sheri Chamberlain MD 10/03/2018 19:01
[2018-10-04] MEDS: levETIRAcetam 1000MG IVPREMIX* 1,000 MG/100 ML BAG IVPB SCH ×2 (03:53→15:55)
[2018-10-04] MEDS: Phenylephrine 10 MG/ML VIAL* 50 MG in NS 0.9% 250 ML* 245 ML IV SCH ×2 (05:58→12:11)
[2018-10-04 06:16] LABS: ABS Lymphocytes 1.7 10^3/ul (1.0-4.8); ABS Monocytes 1.4 10^3/ul (0-0.8); ABS Neutrophils 12.3 10^3/ul (1.5-7.7); Eosinophil % 0.2 %; Hematocrit 45 % (35-47); Hemoglobin 15.4 g/dL (12.0-16.0); Mean Corpuscular HGB Conc 35 g/dL (31-36); Mean Corpuscular Hemoglobin 31 pg (27-31); Mean Corpuscular Volume 90 fL (80-97); Mean Platelet Volume 7.5 fL (7.4-10.4); Platelet Count 356 10^3/uL (150-450); Red Blood Count 4.94 10^6 /uL (3.70-4.87); Red Cell Distribution Width 14 % (10-15); White Blood Count 15.5 10^3/uL (3.5-10.8)
[2018-10-04 06:45] LABS: Albumin 4.4 g/dL (3.2-5.2); Albumin/Globulin Ratio 1.4 (1-3); BUN/Creatinine Ratio 23.1 (8-20); Calcium 9.3 mg/dL (8.6-10.3); EGFR African American 109.4 (>60); EGFR Non-African American 90.4 (>60); Globulin 3.1 g/dL (2-4); Potassium 4.1 mmol/L (3.5-5.0); Total Bilirubin 0.6 mg/dL (0.2-1.0); Total Protein 7.5 g/dL (6.4-8.9)
--- NOTE | 2018-10-04 12:38 | PN ---
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 glioma -overnight started on mattie for BP support in setting of stroke -overnight some imrpovement in neuro status and deficit; this morning fluctuating status; moving all ext with mild right weakness, no facial droop, dysarthria improved and minimal, Right arm minimal wekaness and drift but at times confused -CT Brain this morning with noted left BG hemorrhage, left small occ bleed and small amt of right post ventr blood -tmax 100.4 Tele: NSR Vitals: Vital Signs Temp 100.4 F 10/04/18 10:00 Pulse 69 10/04/18 10:00 Resp 17 10/04/18 10:00 BP 151/75 10/04/18 10:00 Pulse Ox 94 10/04/18 10:00 Intake & Output 10/03/18 10/04/18 10/04/18 18:59 06:59 18:59 Intake Total 0 505 Output Total 1825 641 535 Balance -1825 -136 -535 Weight 87.1 kg 86.8 kg Intake: IV Fluids 283 NS (0.9%) 283 Medicated IV 222 CC - Phenylephrine/ 222 Neosynephrine Oral 0 Output: Jack 1825 641 535 O2/Vent: RA Infusions: mattie 160 Current Medications: Atorvastatin Calcium (Lipitor*) 80 mg PO 1700 EVER Levetiracetam (Keppra Iv Premix*) 1,000 mg in 100 mls @ 400 mls/hr IVPB Q12H EVER Last Admin: 10/04/18 03:53 Dose: 400 mls/hr Phenylephrine HCl 50 mg/ (Sodium Chloride) 250 mls @ 42 mls/hr IV Q6H EVER; Protocol Last Admin: 10/04/18 12:11 Dose: 45 mls/hr Physical Exam: Constitutional: awake, alert, no distress, no diaphoresis Head: normocephalic, atraumatic Eyes: no pallor, no icterus ENT: moist mucous membranes Neck: soft, supple, no jvd, no stridor CVS: normal rate, regular, no murmur Resp: bilateral air entry, no RRW, no acc muscle use Abdomen/GI: soft, nontender, nondistended, BS+ Ext/Msk: warm, pulses+, no edema Skin: intact, warm Neuro: awake, alert, orientedx2-3, some alternating confusion; Right arm 4-5/5 strength, Right leg 5/5 strength; no facial droop noted; pupils reactive, minmal dysarthria noted now Labs: Laboratory Results - last 24 hr 10/03/18 10/03/18 10/04/18 10:22 10:22 06:04 WBC RBC Hgb Hct MCV MCH MCHC RDW Plt Count MPV Neut % (Auto) Lymph % (Auto) [place] % (Auto) Eos % (Auto) Baso % (Auto) Absolute Neuts (auto) Absolute Lymphs (auto) Absolute Monos (auto) Absolute Eos (auto) Absolute Basos (auto) Absolute Nucleated RBC Nucleated RBC % Sodium 137 Potassium 4.1 Chloride 105 Carbon Dioxide 25 Anion Gap 7 BUN 15 Creatinine 0.65 Est GFR ( Amer) 109.4 Est GFR (Non-Af Amer) 90.4 BUN/Creatinine Ratio 23.1 H Glucose 116 H Hemoglobin A1c 5.3 Calcium 9.3 Total Bilirubin 0.60 AST 15 ALT 11 Alkaline Phosphatase 70 Total Protein 7.5 Albumin 4.4 Globulin 3.1 Albumin/Globulin Ratio 1.4 TSH 2.60 10/04/18 06:04 WBC 15.5 H RBC 4.94 H Hgb 15.4 Hct 45 MCV 90 MCH 31 MCHC 35 RDW 14 Plt Count 356 MPV 7.5 Neut % (Auto) 79.7 Lymph % (Auto) 11.0 [place] % (Auto) 8.9 Eos % (Auto) 0.2 Baso % (Auto) 0.2 Absolute Neuts (auto) 12.3 H Absolute Lymphs (auto) 1.7 Absolute Monos (auto) 1.4 H Absolute Eos (auto) 0.0 Absolute Basos (auto) 0.0 Absolute Nucleated RBC 0.0 Nucleated RBC % 0.0 Sodium Potassium Chloride Carbon Dioxide Anion Gap BUN Creatinine Est GFR ( Amer) Est GFR (Non-Af Amer) BUN/Creatinine Ratio Glucose Hemoglobin A1c Calcium Total Bilirubin AST ALT Alkaline Phosphatase Total Protein Albumin Globulin Albumin/Globulin Ratio TSH Imaging: EKG 10/03 NSR, 1st deg AVB CT brain 10/03 - no acute process noted CTA brain 10/03 - no acute occlusion MRI brain 10/03 - 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 Unable to say words in kitchen, slurry speech+, forgot how to operate microwave. No weakness/numbness/blurry vision noted. Went to neighbor house who brought her to ER. She states 5 days back on Saturday she had similar episode for 45min, slurred speech but also right arm weakness, unable to hold things, no gait disturbance, but improved then. No cp/sob/n/v. States she takes ASA 81mg bid, ASA 325mg every afternoon, doesnt like statin, takes metoprolol daily also. In ER, Stroke code called, CT brain negative for acute process. NIHSS 2. Neuro consult called, decision for tpa administration made, started, being completed now ~12pm. -Suspected Acute CVA; s/p tpa 10/03 -post tpa acute left Basal ganglia and left occipital lobe hemorrhage 10/04 -r/o underlying bassal ganglia mass -Hypertension -Hyperlipidemia Plan: Neuro- -suspected CVA, with recent TIA events; but also unclear if glioma also underlying causing intermittent seizures resulting in deficit now? -MRI and CT/CTAs reviewed as above -new left BG and Occipital lobe hemorrhage post tpa -no ASA/AC -cont statin -on mattie, keep SBP 100-130s now -neurochecks -small hemorrhages, likely no neurosurg indicated here -will need MRI brain w/ contrast saturday for re-evaluation of this -repeat CT brain tomorrow or if change in neurostatus -swallow eval, fall prec -will need pt/ot next week once stable -tele monitoring -TTE for eval for thrombus -Delirium prec; avoid BDZ CVS- -on mattie infusion; maintain SBP 100-130s givne new hemorrhage post tpa -no ASA/AC -tele monitoring, no arrythmias noted overnight, TTE ordered -Maintain MAP>65 Resp- -RA, no distress -Wean Fio2 to keep sat>92% ID- tmax 100.4, wbc 15 , central fever? no infection suspected. nonctoxic appearance. GI- -swallow eval, formal swallow saturday Renal- -strict I/O, replete to keep K>4, Mg>2 -jack as indicated Heme- hg normal -s/p tpa; with new ICH now -no ASA/AC Endo- hba1c 5.3; tsh 2.6; cont statin Musculsk- pressure ulcer prophylaxis. Bedrest. Wounds- none Nutrition- swallow eval DVT prophylaxis: SCD GI prophylaxis: - Central Line: - Arterial Line: - Jack Cathetor: - Disposition: Patient required ICU/Critical Care for CVA, post tpa with intracranial hemorrhage, neurochecks Patient Clinical Status: guarded discussed with Son Ezekiel on phone yesterday; he would come to hospital today from [place]. Discussed with patient current medical condition Code Status: full code Total Critical Care time is 40 minutes, excluding procedures/teaching Dean Delaney MD Car Dropper (Electronically Signed)
[2018-10-04] MEDS ORDERED: Phenylephrine 10 MG/ML VIAL* 50 MG in NS 0.9% 250 ML* 245 ML IV SCH ×6 (13:00→23:00)
--- NOTE | 2018-10-04 15:13 | CONS ---
NEUROLOGY CONSULT FOLLOWUP NOTE: DATE OF FOLLOWUP: 10/04/18 LOCATION: She is in the ICU bed 2. CAPTAIN/CHECK AIRMAN: Dr. Delaney CHIEF COMPLAINT: Aphasia, right sided weakness. INTERVAL HISTORY: Since yesterday, Ms. Alejandro developed intracranial hemorrhage as seen on followup CAT scan today. She had an MRI last evening, which revealed a lesion in the region of the left basal ganglia. Reviewed all the images from yesterday and today. Ms. Alejandro has no complaints other than being "bored." She was asleep when I entered the room, but w as able to awaken and interact. She is quite aphasic and hard to understand much of what she says. She denies headache. She denies changes in vision. MEDICATIONS: Reviewed and she is on: 1. Atorvastatin 80 mg p.o. daily. 2. Levetiracetam 100 mg IV q.12 hours. 3. Phenylephrine. PHYSICAL EXAM: She was somnolent, awoke to voice. She has a temperature of 100.2 to 100.4 pretty co nsistently through the morning, blood pressure is running about 160/80, heart rate is in the 60s and regular, respiratory rate is 18 and oxygen saturation is 95% on supplemental oxygen by nasal cannula. Neck is supple. Heart: Tones sound normal. There are no cervical bruits. I do not see any rashes or birthmarks on the head or neck. Neurologically: Pupils react equally from 3 to 2 mm. Funduscop ic exam reveals sharp disks bilaterally. Eye movements are notable for a diminished rightward gaze o r at least not neglect to the right. Visual burciaga are full to finger counting, however. Facial mus culature is notable for mild right lower facial weakness. Facial sensation is reported as symmetric. She has a right pronator drift, but is able to hold the arm up for at least 5 to 7 seconds. She samayoa s diminished light touch in the right and relative to the left. She has strong leg movements bilater ally. Finger taps are clumsy in the right hand. She is disoriented to time stating that she has bee n here 2 weeks, but again I am not sure how much that is language deficit versus confusion. In addition to the imaging, laboratory studies we reviewed. CBC is notable for an elevation in white count of 15.5 this morning, CBCs otherwise within normal limits. Her INR yesterday was 1.21 and PTT was normal at 35.8. Chemistries this morning notable for glucose of 116, and otherwise normal chemis tries. Her cholesterol yesterday was 205 and LDL 123. TSH is normal. Images are reviewed extensively. CT of the brain from today is interpreted as showing intraparenchym al hemorrhage in the left basal ganglia, left occipital lobe, as well as intraventricular hemorrhage in the right lateral ventricle. I reviewed the Images and I agree. At the left basal ganglia hemorr maylin is a little bit more inferior and does radiate up from just about the wall of the third ventricl e a little bit bilaterally. CT of the brain from yesterday was interpreted as normal and I reviewed and I agree. CT angiogram of the brain from yesterday was interpreted as minimal atherosclerosis of the origin of the left recording studio internship al carotid artery. Otherwise, a normal CT angiogram of the neck and head. MRI of the brain is reviewed as well from yesterday around noon. Interpretation was 1.2 x 2.2 lesion in the region of the left basal ganglia. There are also multiple areas of hemosiderin deposit throu gh the hemispheres with particularly focused area of hemosiderin deposit in the posterior left pariet al region. IMPRESSION: Included given the pattern of chronic microhemorrhages and superficial siderosis, inflam matory cerebral angiopathy was also under consideration. Transthoracic echocardiogram from yesterday was interpreted as normal transthoracic echocardiogram ot her than trace mitral and tricuspid regurgitation. Left ventricle systolic function was normal and t he left atrium was mildly dilated. Impression is that of a possible transient ischemic attack or possibly focal seizures, status post tP A. She has had some hemorrhaging in the region of the lesions seen on MRI yesterday. There was als o some small amount of hemorrhage in the left occipital area where there was also evidence of a alonzo ntration of hemosiderin deposit. At this point a cerebral angiopathy of some etiology seems a possibility. Also, she was having episo zane of brief aphasia apparently for quite some time prior to this event yesterday so she may have bee n having focal seizures or transient ischemic attacks. She is always going to be continued on maintenance Keppra currently a 1000 mg twice per day. I have discussed the case with Dr. Delaney and recommended stopping the statin to do the small increase risk of bleeding on statins. Also it seems less likely that she has had large vessel atherosclerotic event. I am looking to get an MRI of the brain with contrast, but I think that can wait until Saturday as at this point it is more a matter of trying to keep things calm and stable, give time for hemorrhages t o resolve. She should not receive antiplatelet therapy and she is not currently. I put in blood wor k for variety of connective tissue disorders as well. Cerebral amyloid angiopathy is a possibility bu t there is no specific treatment. I superficial siderosis I think is also a consideration, now have to do some homework in terms of getting up to date on that. I will continue to follow her with you. [id number]/[facility] #: [id number]
[2018-10-04] MEDS ORDERED: Atorvastatin* 80 MG TAB PO SCH (17:00)
[2018-10-04] MEDS ORDERED: Ondansetron INJ* 2 MG/ML VIAL IV PRN (18:20)
[2018-10-05] MEDS: levETIRAcetam 1000MG IVPREMIX* 1,000 MG/100 ML BAG IVPB SCH (03:46)
[2018-10-05] MEDS ORDERED: Acetaminophen TAB* 325 MG PO ONE (04:25)
[2018-10-05 04:44] LABS: ABS Eosinophils 0.1 10^3/ul (0-0.6); ABS Lymphocytes 2.1 10^3/ul (1.0-4.8); ABS Monocytes 0.9 10^3/ul (0-0.8); ABS Neutrophils 6.5 10^3/ul (1.5-7.7); Eosinophil % 1.5 %; Hematocrit 46 % (35-47); Hemoglobin 15.7 g/dL (12.0-16.0); Lymphocyte % 21.8 %; Mean Corpuscular HGB Conc 34 g/dL (31-36); Mean Corpuscular Hemoglobin 31 pg (27-31); Mean Corpuscular Volume 92 fL (80-97); Mean Platelet Volume 7.4 fL (7.4-10.4); Platelet Count 214 10^3/uL (150-450); Red Blood Count 5.06 10^6 /uL (3.70-4.87); Red Cell Distribution Width 14 % (10-15); White Blood Count 9.7 10^3/uL (3.5-10.8)
[2018-10-05 04:54] LABS: Albumin 4.1 g/dL (3.2-5.2); Calcium 9.7 mg/dL (8.6-10.3); Magnesium 2.4 mg/dL (1.9-2.7); Total Bilirubin 0.7 mg/dL (0.2-1.0)
[2018-10-05 05:00] LABS: Albumin/Globulin Ratio 1.3 (1-3); BUN/Creatinine Ratio 27.9 (8-20); EGFR African American 117.7 (>60); EGFR Non-African American 97.2 (>60); Globulin 3.2 g/dL (2-4); Phosphorus 3.1 mg/dL (2.5-5.0); Total Protein 7.3 g/dL (6.4-8.9)
[2018-10-05 05:22] LABS: Potassium 4.3 mmol/L (3.5-5.0)
--- NOTE | 2018-10-05 10:35 | PN ---
Progress Note - Progress Note Date of Service: 10/05/18 Note: Progress Note -- Critical Care 24 hour events -was tmax 100; now afebrile -awake, alert, but confused and not well oriented -no distress; moving right side more and more -off mattie , BP 100-120s; not tachy, NSR -no tele events noted -son at bedside yesterday, discussed case and findings Tele: NSR Vitals: Vital Signs Temp 99.0 F 10/05/18 10:01 Pulse 69 10/05/18 09:00 Resp 17 10/05/18 10:01 BP 107/101 10/05/18 10:01 Pulse Ox 86 10/05/18 10:01 Intake & Output 10/04/18 10/05/18 10/05/18 18:59 06:59 18:59 Intake Total 514 594 Output Total 1035 451 115 Balance -521 143 -115 Weight 85.8 kg Intake: IV Fluids 147 NS (0.9%) 147 IVPB 100 NS (0.9%) 100 Medicated IV 337 134 CC - Phenylephrine/ 337 134 Neosynephrine Oral 30 360 Output: Jack 1035 451 115 O2/Vent: RA Infusions: heplock Current Medications: Levetiracetam (Keppra Iv Premix*) 1,000 mg in 100 mls @ 400 mls/hr IVPB Q12H EVER Last Admin: 10/05/18 03:46 Dose: 400 mls/hr Phenylephrine HCl 50 mg/ (Sodium Chloride) 250 mls @ 3 mls/hr IV Q72H EVER; Protocol Last Admin: 10/04/18 23:10 Dose: 3 mls/hr Ondansetron HCl (Zofran Inj*) 4 mg IV Q4H PRN PRN Reason: NAUSEA/VOMITING Physical Exam: Constitutional: awake, alert, no distress, no diaphoresis Head: normocephalic, atraumatic Eyes: no pallor, no icterus ENT: moist mucous membranes Neck: soft, supple, no jvd, no stridor CVS: normal rate, regular, no murmur Resp: bilateral air entry, no RRW, no acc muscle use Abdomen/GI: soft, nontender, nondistended, BS+ Ext/Msk: warm, pulses+, no edema Skin: intact, warm Neuro: awake, alert, orientedx2, some alternating confusion; Right arm 4-5/5 strength, Right leg 5/5 strength; mild right facial droop+ noted; pupils reactive, minimal dysarthria noted Labs: Laboratory Results - last 24 hr 10/04/18 10/04/18 10/05/18 16:00 16:00 04:32 WBC 9.7 RBC 5.06 H Hgb 15.7 Hct 46 MCV 92 MCH 31 MCHC 34 RDW 14 Plt Count 214 MPV 7.4 Neut % (Auto) 66.9 Lymph % (Auto) 21.8 [place] % (Auto) 9.3 Eos % (Auto) 1.5 Baso % (Auto) 0.5 Absolute Neuts (auto) 6.5 Absolute Lymphs (auto) 2.1 Absolute Monos (auto) 0.9 H Absolute Eos (auto) 0.1 Absolute Basos (auto) 0.0 Absolute Nucleated RBC 0.0 Nucleated RBC % 0.0 ESR 5 Sodium Potassium Chloride Carbon Dioxide Anion Gap BUN Creatinine Est GFR ( Amer) Est GFR (Non-Af Amer) BUN/Creatinine Ratio Glucose Calcium Phosphorus Magnesium Total Bilirubin AST ALT Alkaline Phosphatase C-Reactive Protein 24.45 H Total Protein Albumin Globulin Albumin/Globulin Ratio 10/05/18 04:32 WBC RBC Hgb Hct MCV MCH MCHC RDW Plt Count MPV Neut % (Auto) Lymph % (Auto) [place] % (Auto) Eos % (Auto) Baso % (Auto) Absolute Neuts (auto) Absolute Lymphs (auto) Absolute Monos (auto) Absolute Eos (auto) Absolute Basos (auto) Absolute Nucleated RBC Nucleated RBC % ESR Sodium 138 Potassium 4.3 Chloride 106 Carbon Dioxide 22 Anion Gap 10 BUN 17 Creatinine 0.61 Est GFR ( Amer) 117.7 Est GFR (Non-Af Amer) 97.2 BUN/Creatinine Ratio 27.9 H Glucose 92 Calcium 9.7 Phosphorus 3.1 Magnesium 2.4 Total Bilirubin 0.70 AST 16 ALT 8 Alkaline Phosphatase 63 C-Reactive Protein Total Protein 7.3 Albumin 4.1 Globulin 3.2 Albumin/Globulin Ratio 1.3 Imaging: EKG 10/03 NSR, 1st deg AVB CT brain 10/03 - no acute process noted CTA brain 10/03 - no acute occlusion MRI brain 10/03 - 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 Unable to say words in kitchen, slurry speech+, forgot how to operate microwave. No weakness/numbness/blurry vision noted. Went to neighbor [facility] [employer] who brought her to ER. She states 5 days back on Saturday she had similar episode for 45min, slurred speech but also right arm weakness, unable to hold things, no gait disturbance, but improved then. No cp/sob/n/v. States she takes ASA 81mg bid, ASA 325mg every afternoon, doesnt like statin, takes metoprolol daily also. In ER, Stroke code called, CT brain negative for acute process. NIHSS 2. Neuro consult called, decision for tpa administration made, started, being completed now ~12pm. -Suspected Acute CVA; s/p tpa 10/03 -post tpa acute left Basal ganglia and left occipital lobe hemorrhage 10/04 -r/o underlying bassal ganglia mass -Hypertension -Hyperlipidemia Plan: Neuro- -suspected CVA, with recent TIA events; ?vascular malformations on MRI brain noted -some residual deficit noted on right still but better than night before -cont neurochecks q4h -started on keppra 1gm IV BID for possible underlying seizures -repeat CT brain w/o contrast today -plan for MRI brain w/ contrast tomorrow to eval for further structural abn or malformations as etiology of symptoms -EEG ordered for r/o underlying seizures -no ASA/AC -no statin -off mattie now; BP 100-120s; have not restart antihypertensives -bedside swallow eval, fall prec; formal swallow tomorrow\ -PT/OT -tele monitoring -TTE 10/03 - normal LV function -Delirium prec; avoid BDZ CVS- -BP stable ; off pressors -no AC/ASA -restart antihypertensives / BB tomorrow -tele monitoring, no arrythmias noted overnight -TTE normal LV function -Maintain MAP>65 Resp- -RA, no distress ID- afebrile now; wbc normalized; no infectious source, suspect central fever. watch off abx GI- -swallow eval, start puree diet; formal swallow tomorrow -aspiration prec Renal- -strict I/O, replete to keep K>4, Mg>2 -jack as indicated Heme- hg normal -s/p tpa; with new ICH; no AC/antiplatelets -DVT proph SCD Endo- hba1c 5.3; tsh 2.6 Musculsk- pressure ulcer prophylaxis. pt/ot. Wounds- none Nutrition- swallow eval bedside; puree diet for now DVT prophylaxis: SCD GI prophylaxis: - Central Line: - Arterial Line: - Jack Cathetor: - Disposition: CT brain todya; if stable, may consider downgrade to Tele with neurochecks later today Patient Clinical Status: guarded Code Status: full code Dean Delaney MD Filling Room Operator (Electronically Signed)
--- NOTE | 2018-10-05 14:53 | CONS ---
NEUROLOGY CONSULTATION FOLLOWUP: DATE OF FOLLOWUP: 10/05/18 LOCATION: He is in ICU, bed 2. STRETCH MACHINE OPERATOR: Dr. Delaney. CHIEF COMPLAINT: Cerebrovascular event. INTERVAL HISTORY: Since yesterday Irina has been better. She is more alert and conversant. She passed a swallowing test and is currently eating her lunch. She does not notice any weakness of her extremities. She has very poor short-term memory. Her son, Ezekiel, from [place] is present. He agrees she is better today. They note that her short-term memory is extremely poor. In questioning him and her about her memory, she did not think she had problems with her memory prior to this hospitalization. Ezekiel agrees. He said sometimes it was difficult to keep her focused, but her memory was fine. denies headache currently. She has a history of hypertension and she does not take her antihypertensive medications. This apparently goes back years. MEDICATIONS: Reviewed, and she is now on: 1. Zofran 4 mg IV q.4 hours as needed. 2. Keppra 1000 mg IV q.12 hours. PHYSICAL EXAMINATION: She is alert and eating lunch. Temperature is 100.0 by Bolton probe and has been consistently right near 100 for 24 hours or so. Blood pressure most recently is 129/92, heart rate in the 80s. There is no facial weakness. She is using both arms well. Language is generally fluent with occasional word-finding problems. Short-term memory is very poor. I did not interrupt her lunch, but rather concentrated on history from the patient and corollary history from her son. DIAGNOSTIC STUDIES/LAB DATA: Laboratory data reviewed includes a CT of the brain without contrast today, which reveals the same left basal ganglia/ paraventricular hemorrhage without change. There is no evidence of enlargement of the hemorrhage. IMPRESSION AND PLAN: Impression is that of a transient episode of neurological dysfunction treated with tPA. She has a small hemorrhage and is improved from yesterday. CT imaging of the hemorrhage is stable. Her MRI scans are very interesting and the radiologist thought there might be a glioma. She is scheduled for an MRI of the brain with contrast tomorrow. She had numerous microbleeds on her MRI imaging. This could be from her presumably uncontrolled hypertension, particularly with the deep basal ganglia microbleeds. Amyloid angiopathy is a possibility as well, but typically the microbleeds would be more lobar and in the posterior hemispheres. Her sedimentation rate is normal today, although her CRP was elevated at 24.4 yesterday. Other connective tissue disorder markers are pending. Dr. Franklin will be on neurology service tomorrow and I will sign Ms. Alejandro's case over to him. [id number]/[facility] #: [id number] MTDD
[2018-10-05] MEDS: levETIRAcetam TAB* 500 MG PO SCH (22:02)
[2018-10-06] MEDS: levETIRAcetam TAB* 500 MG PO SCH ×2 (09:00→20:28)
[2018-10-06 09:29] LABS: Hematocrit 44 % (35-47); Hemoglobin 15.5 g/dL (12.0-16.0); Mean Corpuscular HGB Conc 35 g/dL (31-36); Mean Corpuscular Hemoglobin 31 pg (27-31); Mean Corpuscular Volume 90 fL (80-97); Mean Platelet Volume 7.4 fL (7.4-10.4); Platelet Count 248 10^3/uL (150-450); Red Blood Count 4.93 10^6 /uL (3.70-4.87); Red Cell Distribution Width 14 % (10-15); White Blood Count 7.8 10^3/uL (3.5-10.8)
[2018-10-06 09:33] LABS: BUN/Creatinine Ratio 28.6 (8-20); Calcium 9.4 mg/dL (8.6-10.3); EGFR African American 113.4 (>60); EGFR Non-African American 93.7 (>60); Magnesium 2.2 mg/dL (1.9-2.7)
[2018-10-06] MEDS ORDERED: Gadoteridol* (CONTRAST) 279.3 MG/ML 10 ML IV ONE (12:47)
--- NOTE | 2018-10-06 14:48 | PN ---
Subjective Date of Service: 10/06/18 Interval History: No overnight events. Pending MRI w contrast today. Pt reports feeling "slow" but otherwise no specific complaints. Objective Active Medications: Levetiracetam (Keppra Tab*) 500 mg PO BID [facility] Last Admin: 10/06/18 09:00 Dose: 500 mg Metoprolol Succinate (Toprol Xl Tab*) 25 mg PO BEDTIME EVER Ondansetron HCl (Zofran Inj*) 4 mg IV Q4H PRN PRN Reason: NAUSEA/VOMITING Vital Signs - 8 hr 10/06/18 10/06/18 10/06/18 07:51 08:00 11:15 Temperature 98.3 F 100.9 F Pulse Rate 82 102 Respiratory 20 16 20 Rate Blood Pressure 130/64 132/69 (mmHg) O2 Sat by Pulse 96 95 Oximetry Oxygen Devices in Use Now: None Appearance: NAD, son at bedside Ears/Nose/Mouth/Throat: Clear Oropharnyx, Mucous Membranes Moist Neck: NL Appearance and Movements; NL JVP, Trachea Midline Respiratory: Symmetrical Chest Expansion and Respiratory Effort, Clear to Auscultation Cardiovascular: NL Sounds; No Murmurs; No JVD, RRR Abdominal: NL Sounds; No Tenderness; No Distention, No Hepatosplenomegaly Extremities: No Edema Skin: No Rash or Ulcers Neurological: Alert and Oriented x 3, NL Sensation - possible R sided facial droop but otherwise CN2-12 intact, NL Muscle Strength and Tone, - Result Diagrams: 10/06/18 08:59 10/06/18 08:59 Microbiology and Other Data: Microbiology 10/03/18 15:15 Nasal Screen MRSA (PCR) - Final Nasal Mrsa Not Detected Assess/Plan/Problems-Billing Assessment: 68W with HTN, essential tremor, presents with aphasia, dizziness, confusion, found with intial normal NCHCT, now s/p tPA c/b L basal ganglia and occipital lobe intraparenchymal hemorrhage, also with 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 - Patient Problems (1) CVA (cerebral vascular accident) Comment: s/p tPA on 10/03, complicated by L basal ganglia and L occipital lobe hemorrhage - appreciate Neuro recs - holding antiplatelets in setting of bleed - cont Keppra 500mg bid - f/u brain MRI with contrast given concern for underlying structural disease on noncon MRI - PT/OT/S&S (2) Hypertension Comment: h/o HTN, but with hypOtension this admission, s/p pressors - cont to monitor BP - cont metoprolol suc 25mg daily (3) DVT prophylaxis Comment: medication contraindicated in setting of intracranial hemmorhage (4) Full code status Status and Disposition: May need STR after hospitalization.
--- NOTE | 2018-10-06 16:36 | PN ---
Subjective Length of Stay: 3 Days Neurology is following for focal neurological deficits. Interval History: Reviewed the previous history: Ms. Alejandro is a 68-year-old female with who presented with speech difficulty on 10/03/2018. The symptoms were sudden in onset and the patient had received IV tPA. She then had deterioration of her deficits and developed right facial weakness, right arm weakness, and worsening speech difficulty. The patient had repeat imaging and an MRI which showed a left basal ganglia glioma and chronic diffuse microhemorrhages. A repeat brain MRI today was done and pending final report. Upon reviewing the scan, there seems to be no enhancing lesions but a large area of susceptibility artifact in the left basal ganglia, left parietal region, and diffuse cortical area of microhemorrhages. She was transferred out of the ICU overnight. She was also started on Keppra 1000 mg q 12 hours for suspected seizures. Today, the patient is sitting comfortable. There has been no significant change to her speech. She still has a mild right facial droop. She denied any headache. She has not had any seizure like activity. Review of Systems: Denied CP, SOB, or palpitations. Objective Active Medications: Levetiracetam (Keppra Tab*) 500 mg PO BID [facility] Last Admin: 10/06/18 09:00 Dose: 500 mg Ondansetron HCl (Zofran Inj*) 4 mg IV Q4H PRN PRN Reason: NAUSEA/VOMITING Vital Signs 10/05/18 10/05/18 10/05/18 16:54 20:00 21:53 Temperature 98.6 F Pulse Rate 85 Respiratory 20 16 16 Rate Blood Pressure 146/78 (mmHg) O2 Sat by Pulse 98 Oximetry 10/05/18 10/06/18 10/06/18 23:40 03:15 07:51 Temperature 98.9 F 99.4 F 98.3 F Pulse Rate 88 80 82 Respiratory 16 14 20 Rate Blood Pressure 125/70 116/60 130/64 (mmHg) O2 Sat by Pulse 94 96 96 Oximetry 10/06/18 10/06/18 10/06/18 08:00 11:15 15:20 Temperature 100.9 F 97.2 F Pulse Rate 102 97 Respiratory 16 20 20 Rate Blood Pressure 132/69 116/69 (mmHg) O2 Sat by Pulse 95 97 Oximetry Intake and Output Last 24 Hours 07/20/10/05/18 10/06/18 10/07/18 06:59 06:59 06:59 06:59 Intake Total 505 1108 250 0 Output Total 2466 1486 665 300 Balance -1961 -378 -415 -300 Weight 191 lb 5.78 oz 189 lb 2.506 oz Intake: IV Fluids 283 147 NS (0.9%) 283 147 IVPB 100 20 NS (0.9%) 100 20 Medicated IV 222 471 CC - Phenylephrine/ 222 471 Neosynephrine Oral 0 390 230 0 Output: Urine 200 300 Bolton 2466 1486 465 Other: # Bowel Movements 0 # Voids 1 Oxygen Devices in Use Now: None Neurology Exam: General: Mild ill appearing female in no acute distress HEENT: Normocephelic/atraumatic, sclera anicteric, mucous membranes moist Neck: Supple Chest: Clear to auscultation bilaterally Cardiovascular: Regular rate and rhythm without murmurs, rubs, gallops Extremities: No clubbing, cyanosis, or edema Neurological Findings: Awake, alert, and oriented to person, place, and time. Mixed aphasia. Cranial Nerve: PERRL, mild right facial weakness Motor: s/s throughout, proximal and distal extremities x4 tone/bulk normal Sensation: reduced sensation to pinprick on the left side Deep Tendon Reflex: 2+ symmetric in the upper/lower extremities, Babinski - down going Finger to nose, rapid alternating movements intact without tremor, no dysdiadochokinesia Gait: n/a Result Diagrams: 10/06/18 08:59 10/06/18 08:59 Microbiology and Other Data: Microbiology 10/03/18 15:15 Nasal Screen MRSA (PCR) - Final Nasal Mrsa Not Detected Assessment/Plan Assessment: 1. Mixed aphasia and right facial droop- the likely etiology include: vascular malformation, cerebral amyloidosis, or superficial siderosis. She did not have a stroke. She may have had a seizure caused by the vascular malformation. - It's contraindicated to give her any antithrombotic agents at this time. She will need follow-up images as an outpatient. - She needs an evaluation by a neuroendovascular specialist. - I will find out if Dr. Cool (vascular neurosurgeon from ) still sees outpatient referrals here in [facility]. If not, we need to establish an appointment for her to be seen at as an outpatient. - Pending final read for the recent MRI. - Continue levetiracetam 500 mg PO twice daily - Continue neuro checks every 4 hours - She will need rehabilitation - She should not drive or operate any heavy machinery for at least 6 months. This was discussed with the patient and son at bedside today. - I will continue to follow.
[2018-10-06] MEDS: Metoprolol Succinate XL TAB* 25 MG PO SCH (20:28)
--- NOTE | 2018-10-07 00:36 | EEG ---
ELECTROENCEPHALOGRAPHY: DATE OF SERVICE: 10/06/18 - ROOM #449 DATE READ: 10/06/18 ORDERED BY: Dr. Keny Abdullahi. MEDICATIONS: Keppra, Zofran. CLINICAL PROBLEM: Ms. Alejandro is a 68-year-old female, who presented with aphasia, who received IV tPA. She was found to have a slight post tPA hemorrhage in the left parietal region. This EEG was obtained to evaluate for epileptiform abnormalities or electrographic seizures. CLINIC STATE: Awake and sleep. REPORT: The most prominent feature of this recording was occasional, sharp, and slow-wave epileptiform discharges on left temporoparietal region maximal at P3 with spread to T5. This was seen predominantly in drowsy state. There were also continuous, medium-amplitude, polymorphic, 3-6 Hz theta and delta slowing in the left temporoparietal region with intermittent slowing spreading to the left frontotemporal region. Otherwise, there was some irregularity of the background with mixed frequency slowing in the delta and theta range with occasional alpha range frequencies mostly in the right hemisphere. There was slow posterior dominant rhythm of about 8 Hz that was predominantly seen on the right hemisphere. Attenuation of the occipital rhythm accompanied drowsiness. The sleep background was disorganized and mostly seen in the right hemisphere with absent sleep spindle in the left hemisphere. Hyperventilation and photic stimulation were not performed. Single-electrode EKG showed a normal sinus rhythm with a rate of 95 beats per minute. Throughout the recording, there were no electrographic seizures. CLINICAL IMPRESSION: This is an abnormal awake and sleep EEG due to the followin. Occasional sharp and slow-wave epileptiform discharges emanating from the left parietotemporal region. This findings are suggestive of an increased epileptogenic potential emanating from the parietotemporal area. 2. Continuous slowing over the left temporoparietal region suggestive of a focal neuronal dysfunction consistent with the patient's history of hemorrhage in that region. 3. Irregularity of the background with slow posterior dominant rhythm suggesting a mild, nonspecific, diffuse encephalopathy. 4. There were no electrographic seizures. [id number]/[facility] #: [id number] [facility]
[2018-10-07] MEDS: levETIRAcetam TAB* 500 MG PO SCH ×2 (09:20→22:49)
--- NOTE | 2018-10-07 14:27 | PN ---
Subjective Date of Service: 10/07/18 Interval History: Pt without complaints. No overnight events. MRI yesterday with likely cerebral amyloid angiopathy. Also showing known hematoma and microhemorrhages. PMRU and CM team requesting formal evaluation for capacity to refuse rehab. Objective Active Medications: Levetiracetam (Keppra Tab*) 500 mg PO BID [facility] Last Admin: 10/07/18 09:20 Dose: 500 mg Metoprolol Succinate (Toprol Xl Tab*) 25 mg PO BEDTIME [facility] Last Admin: 10/06/18 20:28 Dose: 25 mg Ondansetron HCl (Zofran Inj*) 4 mg IV Q4H PRN PRN Reason: NAUSEA/VOMITING Vital Signs - 8 hr 10/07/18 10/07/18 10/07/18 07:26 08:00 11:33 Temperature 97.9 F 98.2 F Pulse Rate 79 82 Respiratory 16 18 16 Rate Blood Pressure 131/65 101/60 (mmHg) O2 Sat by Pulse 97 98 Oximetry Oxygen Devices in Use Now: None Appearance: tired-appearing woman in NAD, sleeping initially; easily woken; interactive Ears/Nose/Mouth/Throat: Clear Oropharnyx, Mucous Membranes Moist Neck: NL Appearance and Movements; NL JVP Respiratory: Clear to Auscultation Cardiovascular: NL Sounds; No Murmurs; No JVD, RRR Abdominal: NL Sounds; No Tenderness; No Distention, No Hepatosplenomegaly Extremities: No Edema Skin: No Rash or Ulcers Neurological: Alert and Oriented x 3, NL Muscle Strength and Tone Result Diagrams: 10/06/18 08:59 10/06/18 08:59 Microbiology and Other Data: Microbiology 10/03/18 15:15 Nasal Screen MRSA (PCR) - Final Nasal Mrsa Not Detected Assess/Plan/Problems-Billing Assessment: 68W with HTN, essential tremor, presents with aphasia, dizziness, confusion, found with initial normal NCHCT, now s/p tPA c/b L basal ganglia and occipital lobe intraparenchymal hemorrhage, with MRI concerning for cerebral amyloid angiopathy. - Patient Problems (1) Aphasia Comment: s/p tPA on 10/03, complicated by L basal ganglia and L occipital lobe hemorrhage. Neuro thought likely not CVA but complications of amyloid angiopathy or possible seizure. - appreciate Neuro recs, will f/u with neuroendovascular specialist - holding antiplatelets/anticoagulation in setting of bleed - cont Keppra 500mg bid - PT/OT - will need MRI with contrast in March 2019 (2) Hypertension Comment: h/o HTN, but with hypOtension this admission, s/p pressors - cont to monitor BP - cont metoprolol suc 25mg daily (3) DVT prophylaxis Comment: medication contraindicated in setting of intracranial hemmorhage (4) Full code status Status and Disposition: May need STR after hospitalization.
--- NOTE | 2018-10-07 14:41 | CONSULT ---
Consult Consult: Consult for Medical Decision Making Capacity S: Psychiatry is asked to evaluate capacity in this 68 y.o. white female currently hospitalized with acute onset right-sided weakness, confusion and mild aphasia, presumed to have had an embolic stroke and given TPA, who is subsequently discovered to have hemorrhagic left-sided infarct secondary to amyloid angiopathy. The patient's condition warrants rehab placement yet she is refusing and the primary team would like her capacity to decline this evaluated. I spoke with attending Dr. Leonila Hoffman, who suggests that the risks of going home without further rehabilitation include weakness, falls, possible head trauma and even . On exam the patient is seen, initially with her son, Ezekiel, who leaves the room and allows us to converse alone. The patient does not seem to grasp what the word rehab means. I note that she has a large surgical scar on her left knee and I ask if she went to rehab after that procedure. She hesitates but finally answers that, yes, she did go to a rehab "twice a week" after her surgery. When asked if she knows her diagnosis, she states "No." She does state that she has a dog at home and no one else to care for the pet in her absence. I asked her what could possibly go wrong if she doesn't go to a rehab facility and she responds with confabulation and some disorganization. "I'm guessing that something could go wrong but I don't feel like anything is going through the system. I was surprised to come here and then, there I was again." O: aging white female, overweight; dressed in patient gown; fair grooming; speech has slow rate, lacking fluency at times; euthymic mood with a full affect ; denies SI or HI; insight and judgment poor given insistence on going home without rehab; awake and alert; oriented to place time but not fully to situation A/P: Capacity: During our interaction, Ms. Alejandro failed to demonstrate a reasonable understanding of her illness and the events leading to hospitalization. She could not articulate what treatment has been recommended by her inpatient providers nor the associated risks of refusing said treatment. In my judgment, she lacks the capacity to make an informed decision about refusing rehab placement. Capacity is subject to change in these situations and psychiatry can be reconsulted in the event of any changes in her presentation. Psychiatry is signing off. Thank you for the consult.
--- NOTE | 2018-10-07 17:30 | PN ---
Subjective Date of Service: 10/07/18 Length of Stay: 4 Days Neurology is following for the evaluation of seizure, weakness, and ICH. Interval History: The patient is asking for her dog. She is not interested in rehab and wants to go home instead. She does not understand the severity of her current condition. She denied any headaches. She walked with me today with moderate assist. She was swaying and neglecting the right side when walking. I spoke with Ezekiel and updated him and Mrs. Alejandro about the updated MRI. I spoke with Dr. Francisco Abreu (neuroradiology). We went over the MRI and CT scan results. The patient had a left BG hemorrhage seen on the MRI which was done minutes after the CTA of the head. CTA of the head did not show any hemorrhage. The MRI showed hyperacute blood but also diffuse microhemorrhages which can be seen with CAA. Overall, clinically, she has done very well. Ezekiel did endorse that his mother has had memory problems for months leading to this incident. It was not noticeable but he can tell she was forgetful. The patient has not been evaluated by neurosurgery. Review of Systems: Denied CP, SOB, or palpitations. Objective Active Medications: Levetiracetam (Keppra Tab*) 500 mg PO BID [facility] Last Admin: 10/07/18 09:20 Dose: 500 mg Metoprolol Succinate (Toprol Xl Tab*) 25 mg PO BEDTIME [facility] Last Admin: 10/06/18 20:28 Dose: 25 mg Ondansetron HCl (Zofran Inj*) 4 mg IV Q4H PRN PRN Reason: NAUSEA/VOMITING Vital Signs 10/06/18 10/06/18 10/06/18 19:15 20:00 20:28 Temperature 98.5 F Pulse Rate 88 84 Respiratory 16 18 Rate Blood Pressure 99/44 122/65 (mmHg) O2 Sat by Pulse 99 Oximetry 10/06/18 10/07/18 10/07/18 23:15 03:15 07:26 Temperature 97.2 F 98.1 F 97.9 F Pulse Rate 80 85 79 Respiratory 16 16 16 Rate Blood Pressure 99/51 120/72 131/65 (mmHg) O2 Sat by Pulse 96 99 97 Oximetry 10/07/18 10/07/18 10/07/18 08:00 11:33 15:27 Temperature 98.2 F 98.2 F Pulse Rate 82 83 Respiratory 18 16 16 Rate Blood Pressure 101/60 104/60 (mmHg) O2 Sat by Pulse 98 96 Oximetry Intake and Output Last 24 Hours 10/05/18 10/06/18 10/07/18 10/08/18 06:59 06:59 06:59 06:59 Intake Total 1108 250 0 825 Output Total 1486 665 300 Balance -378 -415 -300 825 Weight 189 lb 2.506 oz Intake: IV Fluids 147 NS (0.9%) 147 IVPB 100 20 NS (0.9%) 100 20 Medicated IV 471 CC - Phenylephrine/ 471 Neosynephrine Oral 390 230 0 825 Output: Urine 200 300 [place] 1486 465 Other: # Bowel Movements 0 # Voids 1 Oxygen Devices in Use Now: None Neurology Exam: General: Well nourished, well developed, and in no acute distress HEENT: Normocephelic/atraumatic, sclera anicteric, mucous membranes moist Neck: Supple Chest: Clear to auscultation bilaterally Cardiovascular: Regular rate and rhythm without murmurs, rubs, gallops Extremities: No clubbing, cyanosis, or edema. Neurological Findings: Awake, alert, and oriented to person, place, and day. Speech: fluent without dysarthria, repetition intact Cranial Nerve: PERRL, R facial droop. Tongue is symmetric. Motor: 5-/5 weakness on the right upper and lower extremity. Sensation: intact to LT/PP bilaterally upper and lower extremities Deep Tendon Reflex: asymmetric 2+ on the right and 1+ on the left. Extensor response on the right. Finger to nose, rapid alternating movements intact without tremor, no dysdiadochokinesia Gait: wide based, swaying towards the left. neglecting the left side. Result Diagrams: 10/06/18 08:59 10/06/18 08:59 Microbiology and Other Data: Microbiology 10/03/18 15:15 Nasal Screen MRSA (PCR) - Final Nasal Mrsa Not Detected Assessment/Plan 1. High suspicion for cerebral amyloid angiopathy given the diffuse peripheral lobar microhemorrhages on MRI (SWI) and some history suggestive of memory problems. Recommendation: she will need STR. She should never receive IV tPA or anticoagulation therapy in the future as there is a very high risk of recurrent ICH. Follow-up with Dr. Almendarez as an outpatient. 2. Basal ganglia hemorrhage with no evidence of enhancing lesion on MRI- suspect the hemorrhage is related to tPA in the setting of CAA. The initial CT head was negative; therefore, there was no contraindication for tPA therapy in this case. Neurosurgery was not involved. Given the patient is doing well overall, there is no need for nsg consultation. However, if she develops any new neurological symptoms, then obtain a STAT CT head without contrast. If the bleeding expanded then obtain a STAT neurosurgery consultation. Please keep her SBP < 140 mmHg. Obtain a repeat CT head without contrast in 14 days to make sure it is stable ( 10/19/2018). DVT prophylaxis with SCD. 3. Rule out vascular malformation or tumor- repeat an MRI brain with and without contrast in 6 months. 4. Abnormal EEG- her presentation was most likely related to focal seizures causing aphasia. She is tolerating levetiracetam 500 mg twice daily. She will most likely need anti-seizure medication indefinitely. She should not drive or operate any heavy machinery until cleared by an outpatient neurologist. Neurology will sign off. Please contact us for any questions or concerns. I will arrange follow-up with Dr. Almendarez in 6 weeks.
[2018-10-07] MEDS: Metoprolol Succinate XL TAB* 25 MG PO SCH (22:49)
[2018-10-08] MEDS: levETIRAcetam TAB* 500 MG PO SCH ×2 (08:00→19:37)
--- NOTE | 2018-10-08 16:00 | PN ---
Subjective Date of Service: 10/08/18 Interval History: No overnight events. Patient sleepy on exam, son reports she is bored. Accepted to [facility] for rehab. Objective Active Medications: Levetiracetam (Keppra Tab*) 500 mg PO BID [facility] Last Admin: 10/08/18 08:00 Dose: 500 mg Metoprolol Succinate (Toprol Xl Tab*) 25 mg PO BEDTIME [facility] Last Admin: 10/07/18 22:49 Dose: 25 mg Ondansetron HCl (Zofran Inj*) 4 mg IV Q4H PRN PRN Reason: NAUSEA/VOMITING Vital Signs - 8 hr 10/08/18 10/08/18 11:15 15:48 Temperature 98.2 F Pulse Rate 82 Respiratory 16 Rate Blood Pressure 135/71 (mmHg) O2 Sat by Pulse 97 97 Oximetry Oxygen Devices in Use Now: None Appearance: AOx3 when awake; occasionally slow responses to questions; otherwise interactive Ears/Nose/Mouth/Throat: Clear Oropharnyx, Mucous Membranes Moist Neck: NL Appearance and Movements; NL JVP Respiratory: Clear to Auscultation Cardiovascular: NL Sounds; No Murmurs; No JVD, RRR Abdominal: NL Sounds; No Tenderness; No Distention, No Hepatosplenomegaly Extremities: No Edema Skin: No Rash or Ulcers Neurological: Alert and Oriented x 3 Result Diagrams: 10/06/18 08:59 10/06/18 08:59 Assess/Plan/Problems-Billing 68W with HTN, essential tremor, presents with aphasia, dizziness, confusion, found with initial normal NCHCT, now s/p tPA c/b L basal ganglia and occipital lobe intraparenchymal hemorrhage, with MRI concerning for cerebral amyloid angiopathy. - Patient Problems (1) Aphasia Comment: s/p tPA on 10/03, complicated by L basal ganglia and L occipital lobe hemorrhage. Neuro thought likely not CVA but complications of amyloid angiopathy or possible seizure. - appreciate Neuro recs - pt to f/u with repeat Head CT and MRI Brain as outpatient - holding antiplatelets/anticoagulation in setting of bleed - cont Keppra 500mg bid - PT/OT (2) Hypertension Comment: h/o HTN, but with hypOtension this admission, s/p pressors - cont to monitor BP - cont metoprolol suc 25mg daily (3) DVT prophylaxis Comment: medication contraindicated in setting of intracranial hemmorhage (4) Full code status Status and Disposition: To [facility] tomorrow.
--- NOTE | 2018-10-08 19:14 | DS ---
CC: Dr. Edmund Wilde; Dr. Anton Almendarez; [place] Edna * DISCHARGE SUMMARY: DATE OF ADMISSION: 10/03/18 DATE OF DISCHARGE: 10/09/18 PRIMARY CARE PHYSICIAN: Dr. Edmund Wilde. NEUROLOGIST: Dr. Anton Almendarez. PRIMARY DIAGNOSES: 1. Possible focal seizure causing aphasia. 2. Basal ganglia hemorrhage after tPA administration. 3. Cerebral amyloid angiopathy. SECONDARY DIAGNOSES: 1. Hypertension. 2. Essential tremor. 3. Recent memory deficits. CONSULT: Neurology Drs. Almendarez, Kaylen, and Rigoberto. DISCHARGE MEDICATIONS: 1. Levetiracetam 500 mg twice a day. 2. Metoprolol succinate 25 mg daily. HISTORY OF PRESENT ILLNESS: Ms. Alejandro is a 68-year-old woman with a history of hypertension, essential tremor, recent total left knee arthroplasty, and significant family history of cerebral aneurysm who is presenting to the emergency room with inability to speak words associated with dizziness, which started approximately 30 minutes prior to her arrival to the emergency department. Initially, she was unable to say words in her kitchen. She also noted some slurred speech. She also forgot how to operate her microwave. Around this time she denied weakness, numbness or blurry vision. She went to the neighbor's house who brought her to emergency room. The patient states that 5 days prior to presentation she had a similar episode for approximately 45 minutes, but that was predominantly slurred speech and right arm with weakness. She was unable to hold things in her right hand, both of these episodes were without gait disturbance. The patient denies chest pain, shortness of breath, nausea, or vomiting. She takes aspirin every day, does not like taking the statin. She also was on metoprolol every day. HOSPITAL COURSE: In the emergency room a stroke code was called. Initial brain CT was negative for an acute process. Her NIH stroke scale was 2 and Neurology was consulted with decision made to administer tPA. The patient then developed right facial weakness, right arm weakness, and worsening of her speech difficulty. 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 She experienced a brief episode of hypotension requiring phenylephrine. After 1 day, a repeat brain MRI was done with contrast, which showed stability in her hemorrhages without concern for mass. The patient's symptoms eventually resolved by day of discharge. Her neuro exam was significant for mild right facial droop and gait significant for sway towards the left. Her speech returned to normal and she was without dysarthria or aphasia. The patient was given no further anticoagulation or antiplatelets. Repeat imaging was most concerning for cerebral amyloid angiopathy. An EEG had some focal areas of abnormalities so we thought the patient's presenting symptoms were actually due to focal seizure. She is maintained on Keppra 500 mg twice a day. She was seen and evaluated by physical therapy team who had recommended ongoing rehabilitation after discharge with repeat imaging studies as as an outpatient. PERTINENT STUDIES AND LABS: Hemoglobin 15.5. Creatinine 0.63. LDL 123. Vitamin B12 of 702. TSH 2.6. SPEP pending. Second brain MRI with left basal ganglia hematoma, interventricular decompression is unchanged in size of 2.6 x 0.9 cm. It causes only mild local mass effect, although known nodular enhancement was seen surrounding the hematoma. A followup brain MRI with contrast should be performed after the hematoma resolves in approximately 6 months. The previously described left occipital lobe hemorrhage localizes to the left lateral ventricle on the MRI. The burden of interventricular hemorrhage is unchanged. The ventricles are stable in caliber. 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 This is suspicious for cerebral amyloid angiopathy. Moderate chronic small vessel disease is likely. Final brain CT with left basal ganglia hemorrhage unchanged from previous exam with left occipital lobe intraparenchymal hemorrhage unchanged, right sided interventricular hemorrhage is improved. Head CTA with minimal atherosclerosis at the origin left internal carotid artery. No significant plaque is noted. No evidence of carotid artery resection is noted. Intracranial circulation demonstrates no evidence of aneurysmal dilatation or branch occlusion. EEG: Occasional sharp and slow wave epileptiform discharges emanating from the left parietotemporal region suggestive of an increased epileptogenic potential emanating from the parietotemporal area. Continuous slowing of the left temporoparietal region suggestive of focal or neuronal dysfunction consistent with patient's history of hemorrhage in that region, irregularity of the background with posterior dominant rhythm suggestive mild, nonspecific, diffuse encephalopathy. There were no electrographic seizures. DISCHARGE PLAN: The patient will be discharged to [facility] for rehab. She should continue to followup with her primary care physician as well as Dr. Almendarez of Neurology in approximately 6 weeks. Of note, she will need a repeat CT head without contrast on 10/19/18 for followup of her previously noted basal ganglia hemorrhage. For any new neurological symptoms she should have an emergent head CT. She will also need a repeat brain MRI with and without contrast in 6 months, March 2019. Given her intracranial hemorrhage noted during admission, she should never again receive tPA or anticoagulation therapy. Given her abnormal EEG there is concern that her presentation is most likely related to focal seizures, so she will be continued on a new home medication, levetiracetam 500 mg daily, likely indefinitely. She was educated not drive or operate heavy machinery until cleared by her outpatient neurologist. Her goal systolic blood pressure is to remain under 140. She is to resume healthy diet, low in processed food with activity as tolerated. DISPOSITION: To [facility]. CONDITION: Improved. TIME SPENT: Approximately 60 minutes was spent on discharge of this patient, more than half of which was spent on care coordination or at bedside for interview and exam. [id number]/[facility] #: [id number] ESTELLE
[2018-10-08] MEDS: Metoprolol Succinate XL TAB* 25 MG PO SCH (19:37)
[2018-10-09 03:42] VITALS: BP 121/54
[2018-10-09] MEDS: levETIRAcetam TAB* 500 MG PO SCH (09:34)
[2018-10-09 16:45] LABS: Albumin 3.4 g/dL (3.4-4.7); Albumin/Globulin Ratio 0.93; Gamma Globulin 1.2 g/dL (0.6-1.6); Total Protein(PEP) 7.1 g/dL (6.3 - 7.9)
== END 2018-10-09 10:35 | DRG 100 ==
LOC: ED 10:08 → ICU 12:10 → MEDTELE 10-05 16:08
PROVIDERS: ADMIT Internal Medicine Critical Care Medicine; ATTEND Internal Medicine
PROC: 3E03317 Introduction of Other Thrombolytic into Peripheral Vein, Percutaneous Approach (ICD-10-PCS; principal; 2018-10-03)
PROC: 4A00X4Z Measurement of Central Nervous Electrical Activity, External Approach (ICD-10-PCS; 2018-10-06)
PROC: 3E033XZ Introduction of Vasopressor into Peripheral Vein, Percutaneous Approach (ICD-10-PCS; 2018-10-07)
DX: G40.89 Other seizures (principal); I61.1 Nontraumatic intracerebral hemorrhage in hemisphere, cortical; E85.4 Organ-limited amyloidosis; R47.01 Aphasia; G81.91 Hemiplegia, unspecified affecting right dominant side; I68.0 Cerebral amyloid angiopathy; I73.9 Peripheral vascular disease, unspecified; I10 Essential (primary) hypertension; M19.071 Primary osteoarthritis, right ankle and foot; R40.2362 Coma scale, best motor response, obeys commands, at arrival to emergency department; R40.2142 Coma scale, eyes open, spontaneous, at arrival to emergency department; R40.2252 Coma scale, best verbal response, oriented, at arrival to emergency department; R29.702 NIHSS score 2; E78.5 Hyperlipidemia, unspecified; I44.0 Atrioventricular block, first degree; I08.1 Rheumatic disorders of both mitral and tricuspid valves; I65.22 Occlusion and stenosis of left carotid artery; G25.0 Essential tremor; Z96.652 Presence of left artificial knee joint; E66.3 Overweight; T45.615A Adverse effect of thrombolytic drugs, initial encounter; Y92.239 Unspecified place in hospital as the place of occurrence of the external cause; R29.810 Facial weakness; R47.1 Dysarthria and anarthria; I95.9 Hypotension, unspecified; Z90.710 Acquired absence of both cervix and uterus; Z88.8 Allergy status to other drugs, medicaments and biological substances; Z88.2 Allergy status to sulfonamides; Z88.1 Allergy status to other antibiotic agents; Z82.49 Family history of ischemic heart disease and other diseases of the circulatory system; Z68.31 Body mass index [BMI] 31.0-31.9, adult
CPT/HCPCS: 36415; 70450; 70496; 70498; 70551; 70553; 80048; 80053; 80061; 80177; 82607; 83036; 83516; 83605; 83735; 84100; 84155; 84165; 84443; 84484; 85025; 85027; 85610; 85652; 85730; 86038; 86140; 87641; 93005; 93306; 95819; 99285; A9270-GY; A9579; C8929; G8978-GP-CK; G8979-GP-CI; J1953; J2997; Q9967